=== PATIENT | female | born 1950 | race Caucasian/White ===

== ENCOUNTER 2023-06-21 22:59 | Inpatient (IN) | payer OTHER, MEDICARE, SELFPAY ==
[2023-06-21 19:53] VITALS: BP 92/55
[2023-06-21 20:14] VITALS: BMI 26.8
[2023-06-21 20:15] VITALS: BP 96/62
[2023-06-21 20:29] LABS: Hematocrit 37.4 % (37.0-47.0); Hemoglobin 13.1 g/dL (12.0-16.0); Mean Corpuscular Volume 88.6 fL (81.0-99.0); Platelet Count 261 10^3/uL (130-400); Red Blood Cell Count 4.22 10^6/uL (4.20-5.40); Red Cell Dist. Width 14.1 % (11.5-14.5); White Blood Cell Count 14.3 10^3/uL (4.8-10.8)
[2023-06-21 20:41] LABS: Lactic Acid 1.2 mmol/L (0.7-2.0)
[2023-06-21 20:47] LABS: COVID-19 Antigen Negative (Negative)
--- NOTE | 2023-06-21 20:48 | ED.GENMED ---
History of Present Illness
General
Chief Complaint: Breathing Problem
Source: patient
Exam Limitations: none
Time Seen by Provider: 06/21/23 20:34
Nursing documentation reviewed up to this point in time: agreed with
Travel History
Have you had any contact with someone who has COVID-19?: No
Do you have any symptoms of coronavirus? Fever > 100 degrees, chills, cough, shortness of breath, sore throat, loss of taste or smell, muscle aches, or headache?: No
History of Present Illness
History of Present Illness:
This is a pleasant 73-year-old female that presents with progressively worsening dyspnea, fever, congestion, and shortness of breath. Tonight, patient felt very lightheaded her pulse ox was below 88 percent on room air. She last had Tylenol at
5:15 PM. She states that she feels warm. 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 She states that she was out and Thursday due to diarrhea and fever. She did take a home COVID test and it was negative.
Patient has a past medical history is for right partial lobectomy secondary to cancer. She states that that was the late 80s and has not had breathing issues since then. She does have a history of pneumonia. She was never a smoker. And she is
not on home oxygen.
Past History
Past History
ED Past Medical History: HTN, Hypothyroidism and Other (arthritis - L knee, multiple aspirations, last one one week ago.)
Social History
Tobacco: Non-smoker
Personal:
Living: with family
Employment: Employed
Review of Systems
Review of Systems
Allergies reviewed?: Yes
Other source history: family (Son is present at the bedside)
All Other Systems: ROS reviewed and negative except as documented in HPI and ROS
Constitutional: Reports fever, fatigue, sleep disturbance and chills
EENT: Reports no symptoms
Respiratory: Reports trouble breathing; Denies hemoptysis
Cardiac: Denies chest pain
ABD/GI: Reports diarrhea
: Reports no symptoms
Musculoskeletal: Reports no symptoms
Skin: Reports no symptoms
Neurological: Reports weakness
Endocrine: Reports no symptoms
Hematologic/Lymphatic: Reports no symptoms
Psychiatric: Reports anxiety
Phy Exam
General Physical Exam
General Presentation: mild distress
General age: appears older than age
General Skin: warm and dry
General Habitus: debilitated (Evidence of rheumatoid arthritis), elderly and failure to thrive
General Mental: alert and other (Hard of hearing)
General Hydration: appears well hydrated
ENT Exam
ENT Exam: EOMI, pharynx normal, neck supple and normocephalic
Eye Exam
Eye Exam: PERRL, cornea clear and conjunctiva normal
Cardiovascular Exam
Cardiovascular Exam: regular rate/rhythm and no edema
Pulmonary Exam
Pulmonary Exam: lungs clear, no respiratory distress, no rales, no crackles, no rhonchi, no stridor, no wheezing and no cough
Gastrointestinal Exam
Gastrointestinal Exam: normal bowel sounds, non tender, soft, no organomegaly, no pulsatile mass and non distended
Neurological Exam
Neurological Exam: alert, oriented x3, no motor deficits and speech normal
Musculoskeletal Exam
Musculoskeletal Exam: full ROM and no edema
Skin Exam
Skin Exam: normal color, warm/dry, no rash and no petechia
Psychiatric Exam
Psychiatric Exam: normal mood/affect
Scores
Heart Failure Risk
Heart Failure Risk Score: Not Applicable
Course
Orders/Labs/Results
Orders:
Orders
06/21/23 20:16
Cardiac Monitoring- Treatment ONCE
IV Insert/Care/Rem.- Treatment PRN
CR Chest - 2 Views Urgent
Comment:
Reason For Exam: suspected infection
O2 Therapy [RESP] Urgent
Titrate/Wean O2 to maintain O2 sat greater than (%): 93
Special Instructions: TO MAINTAIN CONTINUOUS O2 SATS > OR = 93%
Pulse Ox/cont/shift [RESP] Urgent
Quantity: 1
Special Instructions: CONTINUOUS
06/21/23 20:18
Complete Blood Count/With Diff Urgent
Comprehensive Metabolic Panel Urgent
Lactic Acid Q4H
Comment: ON ICE, CANCEL 2ND ORDER IF FIRST LACTIC ACID LEVEL <2
Manual Differential Urgent
Blood Culture Q30M
[place] Source: Blood/Venous
Specimen Description:
Comment: FROM 2 SEPARATE SITES
Blood Culture Q30M
[place] Source: Blood/Venous
Specimen Description:
Comment: FROM 2 SEPARATE SITES
06/21/23 20:19
COVID-19 Antigen Urgent
Source: Nasal Swab
Influenza A+B Rapid Molecular Urgent
[place] Source: Nasal Swab
Specimen Description:
06/21/23 20:47
Pulse Ox/cont/shift [RESP] Stat
Quantity: 1
06/21/23 20:52
0.9% Sodium Chloride 1000 ml [Nss] 1,000 ml IV BOLUS
06/21/23 21:48
Aztreonam [Azactam] 2,000 mg IV NOW STA
06/21/23 21:52
Electrocardiogram (*1) Urgent
Reason for Study: Palpitations
EKG- Treatment ONCE
06/21/23 21:57
Sterile Water [Sterile Water For Injection] 10 ml .ROUTE .STK-MED ONE
06/21/23 22:14
Vancomycin [Vancocin] 2,000 mg 0.9% Sodium Chloride 500 ml [Nss] 500 ml IV NOW
06/21/23 22:40
Admit/Transfer Patient As Directed
Co-Sign Provider:
Level of Care: Inpatient admission
Assign to:: Medical/Surgical
Physician / Group: Maile/Hospitalist
Diagnosis: B/L Pneumonia, hypoxia
Reason for Hospitalization: B/L Pneumonia, hypoxia
Expected length of stay greater than two midnights?: Yes
ELOS- Estimated Length of Stay in days: 3
I certify the patient meets the requirements for IP care: Yes
06/21/23 22:41
Code Status As Directed
Resuscitation Status: Full Code
06/22/23 00:30
Lactic Acid Q4H
Comment: ON ICE, CANCEL 2ND ORDER IF FIRST LACTIC ACID LEVEL <2
Abnormal Lab Results
06/21/23
20:18
WBC 14.3 H 10^3/uL
(4.8-10.8)
Abs Neuts (Manual) 12.5 H 10^3/uL
(1.4-6.5)
Band Neutrophils 16 H %
(0-3)
Lymphocytes (Manual) 2 L %
(20-51)
Sodium 131 L mmol/L
(135-145)
Alkaline Phosphatase 157 H U/L
(38-126)
Total Protein 5.5 L g/dl
(6.3-8.2)
Albumin 3.1 L g/dl
(3.5-5.0)
06/21/23 20:18
06/21/23 20:18
Vital Signs
Initial and Last Documented VS:
Initial Vital Signs
Temp Pulse Resp BP Pulse Ox
98.8 F 80 24 92/55 87
06/21/23 19:53 06/21/23 19:53 06/21/23 19:53 06/21/23 19:53 06/21/23 19:53
Last Documented Vital Signs
Temp Pulse Resp BP Pulse Ox
98.8 F 67 26 115/56 92
06/21/23 19:53 06/21/23 23:15 06/21/23 23:15 06/21/23 23:00 06/21/23 23:15
*Radiology
Radiology exam reviewed: radiology read reviewed
*Pulse Oximetry
Patient hypoxic: no
*Critical Care Note
Total Time (30-74mins, 75-104mins- exclusive of procedures): Not Applicable
Data Reviewed
Review of Other/Old Records Reveals: Labs, Radiology Studies, Progress Notes and Discharge Summary
Source: patient and family
Patient Management
Social determinants of health affecting care: Strong social support
Discussion with other providers: Hospitalist and Radiologist
Update Note
Update Note:
Diagnostic Imaging Report
SignedOrder #:[id number]
Exams:� CR Chest - 2 Views
CPT: 86699
PROCEDURE: CR Chest - 2 Views
CLINICAL INDICATION: suspected infection
TECHNIQUE: 2 views of chest performed.
COMPARISON: 10/08/2022
FINDINGS:
Lungs: Scattered moderate interstitial and airspace opacities throughout the right lung and left midlung. Small right pleural effusion. No visualized pneumothorax.
Heart: Cardiac and mediastinal contours are unremarkable. No overt pulmonary vascular congestion.
Osseous structures: No acute abnormalities.
IMPRESSION:
Findings suggesting bilateral multifocal pneumonia, right worse than left. Small right pleural effusion.
ED Attending Note
-
Portions of this chart may have been created with voice recognition software.� Occasional wrong word or��sound alike� substitutions may have occurred due to the inherent limitations of voice recognition software.
Discharge Plan
Departure
Patient Disposition: Admit
Date of Disposition: 06/21/23
Time of Disposition: 21:50
Admit to: IMU
Presentation/result/management discussed w/ accepting MD/DO: Hospitalist
Condition: Fair
Covid-19: Negative COVID-19
Discharge Problem:
Bilateral pneumonia, History of breast cancer, History of pneumonectomy
Interventions
Interventions:
*Risk Screen - Suicide Last Done: 06/21/23 19:53
*General Assessment Last Done: 06/21/23 20:14
*Neglect/Abuse Screening Last Done: 06/21/23 19:53
ED- Fall Risk Assessment Last Done: 06/21/23 22:00
*ED COVID-19 Vaccine History Last Done: 06/21/23 20:14
ED- Cardiac Assessment Last Done: 06/21/23 22:00
ED- Neurological Assessment Last Done: 06/21/23 22:00
ED- Pulmonary Assessment Last Done: 06/21/23 22:00
ED-Skin Assessment Last Done: 06/21/23 22:00
[2023-06-21 20:49] LABS: ALT (SGPT) 14 U/L (0-35); AST (SGOT) 20 U/L (14-36); Albumin 3.1 g/dl (3.5-5.0); Alkaline Phosphatase 157 U/L (38-126); Blood Urea Nitrogen 12 mg/dl (7-17); Calcium 8.5 mg/dl (8.4-10.2); Carbon Dioxide 23 mmol/L (22-30); Chloride 100 mmol/L (98-107); Estimated Creatinine Clearance 74 ml/min; Glucose 88 mg/dl (70-99); Potassium 3.6 mmol/L (3.5-5.1); Sodium 131 mmol/L (135-145); Total Protein 5.5 g/dl (6.3-8.2); eGFR > 60.00
[2023-06-21 21:00] VITALS: BP 106/59
[2023-06-21 21:11] LABS: Absolute Neutrophils -Man Diff 12.5 10^3/uL (1.4-6.5); Band Neutrophils 16 % (0-3); Lymphocytes 2 % (20-51); Monocytes 8 % (2-9); Myelocytes 2 % (-); Platelets Checked Yes; Segmented Neutrophils 72 % (42-75)
[2023-06-21 21:12] LABS: Normal RBC Morphology Yes; Total Cells Counted 100
[2023-06-21] MEDS: NSS 1000 IV (21:14)
--- NOTE | 2023-06-21 21:54 | HPS.HSE ---
Family Physician
-
Family Physician: Rosi Hall MD
Chief Complaint
-
progressively worsening dyspnea, fever, congestion, shortness of breath, and diarrhea
History of Present Illness
The patient is a 72-year-old female with past medical history of low factor XIII level, postop hemorrhage after right hip replacement, right upper extremity DVT associated with PICC line on Eliquis until when it was discontinued (resolved
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
congestion that has progressively worsened over the past week. Pulse oximetry was 88% on room air. She is not on home oxygen. She took Tylenol at home at 5pm and Robitussin with some relief. She has been off Eliquis since per her follow up
apt with doc after full txt for provoked DVT of UE. She is not on any immunosuppressive therapy since September 2022.
No CP, no hemoptysis, no n/v, no abdominal pain, no dysuria. She had large watery diarrhea non-bloody and Thursday and has not been eating much since that time.
Medical History
Past Medical History
Past Medical History: Reports Cancer (Breast), HTN, Hypothyroidism and Other
Additional Past Medical History:
Essential HTN,
Hypothyroidism
arthritis - L knee, multiple aspirations
Acquired factor VIII def.
Hemorrhages
Acute blood loss anemia
Osteoarthritis
Cholelithiasis
Adrenal insufficiency
Right hip fracture
Rheumatoid arthritis off all medications for RA since September 2022 due to bleeding history (medication she was on thought to provoke bleeding)
Breast cancer with met to lung
Past Surgical History: Reports Orthopedic (b/l TKA, hip replacement) and Other
Additional Past Surgical History:
Right partial pneumonectomy due to breast cancer (late ) , mastectomy
Social History
Tobacco: Non-smoker
Alcohol: None
Drug: None
Personal:
Living: With Family
Family History
Family History: Not pertinent
Allergies / Home Medications
Allergies reflects when Allergies were last updated in [facility].
Home Medications with original date entered in [facility]
Allergy/Medication List:
Allergies
Allergy/AdvReac Type Severity Reaction Status Date / Time
Cephalosporins Allergy Hives/Patient Verified 06/21/23 19:56
is
uncertain
about this
med.
Iodinated Contrast Media Allergy Hives Verified 06/21/23 19:56
[Iodinated Contrast- Oral
and IV Dye]
iodine [Iodine] Allergy Hives/topical Verified 06/21/23 19:56
is okay
Penicillins Allergy Hives/occured Verified 06/21/23 19:56
in the 90's
Home Medications
levothyroxine 75 mcg tablet 75 mcg PO DAILY AT 0700 Thyroid 10/26/20
alendronate 70 mg tablet (Fosamax) 70 mg PO SA osteoporosis 09/18/22
cyanocobalamin (vitamin B-12) 100 mcg tablet (Vitamin B-12) 100 mcg PO DAILY Supplement 12/05/22
Review of Systems
-
A 12 point ROS was completed and negative except as noted: Yes
Physical Exam
Vital Signs
Vital Signs
Temp Pulse Resp BP Pulse Ox
98.8 F 68 23 106/59 87
06/21/23 19:53 06/21/23 21:00 06/21/23 21:00 06/21/23 21:00 06/21/23 19:53
Physical Exam
General: Well Developed, Well Nourished, Comfortable and Conversant
HEENT: NormoCephalic, Anicteric and Moist mucous membranes
Respiratory: Rhonchi (right middle and lower, left lower)
Cardiac: S1/S2 and Carotid Pulses
GI: Soft, Non Tender and Non Distended
Musculoskeletal: No Clubbing, No Cyanosis and No Edema
Skin: Warm and Dry
Neuro: AO x 3, No Motor Deficits and Nonfocal/grossly intact
Psych: Calm
Laboratory Results
-
06/21/23 20:18
06/21/23 20:18
Laboratory Results
Lactic Acid 1.2 mmol/L (0.7-2.0) 06/21/23 20:18
Total Bilirubin 1.0 mg/dl (0.2-1.3) 06/21/23 20:18
AST 20 U/L (14-36) 06/21/23 20:18
ALT 14 U/L (0-35) 06/21/23 20:18
Alkaline Phosphatase 157 U/L (38-126) H 06/21/23 20:18
Data Reviewed
-
Diagnostic Radiology: Report Reviewed by me (bilateral multifocal pneumonia, right worse than left. Small right pleural effusion.)
Impression/Plan
-
IMPRESSION:The patient is a 72-year-old female with past medical history of low factor XIII level, postop hemorrhage after right hip replacement, right upper extremity DVT associated with PICC line on Eliquis until when it was discontinued
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
congestion that has progressively worsened over the past week. Pulse oximetry was 88% on room air. She is not on home oxygen.
#Bacterial pneumonia, bilateral multifocal pneumonia, associated with persistent hypoxia, CXR with multifocal pneumonia right worse than left. Small right pleural effusion. Leukocytosis 14.3, hypoxia, tachypnea
-Continue IV Vancomycin and IV Aztreonam initiated in ED , drug allergy to Cephalosporins and PCN
-Sputum Cx, LUE pending
-IVF
-O2 per NC at 3L
#Hypoxic respiratory failure, not on home oxygen in the setting of history of partial right-sided pneumonectomy
-wean O2 per protocol, 3L NC currently
#Diarrhea, watery non-bloody
-stool studies
Chronic medical issues:
#Essential HTN, stable, not on medication
#Hypothyroidism
-TSH
-Synthroid
#Rheumatoid arthritis - L knee, multiple aspirations, not on any medications at this time since September
#Acquired factor VIII def.
#hemorrhages, no active bleeding
#Acute blood loss anemia
#osteoarthritis
#adrenal insufficiency, history of
DVT proph- PCDs
Full Code
[2023-06-21 22:00] VITALS: BP 127/65
[2023-06-21] MEDS: AZACTAM 2000 MG IV (22:22)
[2023-06-21] MEDS: VANCOCIN 540 MG IV (22:35)
[2023-06-21 23:00] VITALS: BP 115/56
[2023-06-22 00:15] VITALS: BMI 26.5
[2023-06-22 00:16] VITALS: BP 130/67
[2023-06-22] MEDS: NSS 1000 IV ×3 (00:17→15:34)
--- NOTE | 2023-06-22 00:29 | PTCARENOTE ---
Recieved pt from ED @ 0015. Pt AAOX3 VSS. Pt ambulated from stretcher to bed, stopping in bathroom where she got very SOB. Pt ambulated back to bed,pox 93% on 3L. Pt with frequent nonproductive cough, [employer] SPE[employer] notified fo PRN Robitussin orders. Oriented
to room, call tinajero and plan of care.
[2023-06-22] MEDS: ROBITUSSIN DM 10 ML PO ×3 (00:37→22:45)
[2023-06-22] MEDS: AZACTAM 2000 MG IV ×2 (05:50→14:12)
[2023-06-22] MEDS: STERILE WATER FOR INJECTION 10 ML IV ×3 (05:51→15:34)
[2023-06-22] MEDS: SYNTHROID 75 MCG PO (05:55)
[2023-06-22 07:30] VITALS: BP 121/62
[2023-06-22 08:08] LABS: % Basophils 0.1 % (0-2); % Eosinophils 1.6 % (0-6); % Immature Granulocytes 1.4 % (0-0.5); % Lymphocytes 4.1 % (20.5-51.1); % Monocytes 2.6 % (1.7-9.3); % Neutrophils 90.2 % (42.2-75.2); Absolute Eosinophils 0.2 10^3/uL (0-0.7); Absolute Immature Granulocytes 0.2 10^3/uL (0-0.05); Absolute Lymphocytes 0.6 10^3/uL (1.2-3.4); Absolute Monocytes 0.3 10^3/uL (0.1-0.6); Hematocrit 32.2 % (37.0-47.0); Hemoglobin 11.2 g/dL (12.0-16.0); Mean Corp Hgb Conc. 34.8 g/dL (33.0-37.0); Mean Corpuscular Hgb 31.5 pg (27.0-31.0); Mean Corpuscular Volume 90.4 fL (81.0-99.0); Mean Platelet Volume 9.3 fL (7.4-10.4); Nucleated Red Blood Cells % 0 %; Platelet Count 249 10^3/uL (130-400); Red Blood Cell Count 3.56 10^6/uL (4.20-5.40); Red Cell Dist. Width 14.4 % (11.5-14.5); White Blood Cell Count 13.3 10^3/uL (4.8-10.8)
[2023-06-22] MEDS: VITAMIN B-12 100 MCG PO (08:31)
[2023-06-22 08:46] LABS: Blood Urea Nitrogen 14 mg/dl (7-17); Carbon Dioxide 21 mmol/L (22-30); Chloride 102 mmol/L (98-107); Estimated Creatinine Clearance 74 ml/min; Glucose 67 mg/dl (70-99); Potassium 3.3 mmol/L (3.5-5.1); Sodium 135 mmol/L (135-145); eGFR > 60.00
--- NOTE | 2023-06-22 11:53 | CM ---
Patient seen bedside.
IA completed.
patient lives with son in a 2 story home, patient lives on 1st floor, son on 2nd.
Patient independent prior to admission without assistive devices.
Patient is no on home oxygen.
No VN in the past.
PCP: Dr Hall
Pharmacy: [facility]
Plan: home no needs.
--- NOTE | 2023-06-22 12:16 | PHA.VAN.IN ---
Assessment
- Assessment
Renal Function: Appears similar to baseline
Maximum Temperature: 98.8
Minimum Temperature: 97.8
Concomitant Antimicrobials: aztreonam
AUC Dosing Plan
- Dosing Variables
Dosing Weight (kg): 72
Dosing CrCl (ml/min): 74
Vd coefficient (L/kg): 0.7
- Empiric Dosing
Initial / Loading Dose: 2000mg 06/21 2234
Maintenance Regimen: vanc 750mg q12h
Estimated AUC (mcg*h/mL): 467
Estimated Peak (mcg*h/mL): 27.3
Estimated Trough (mcg/ml): 13.2
Estimated Half Life (H): 10.5
- Monitoring
No levels ordered at this time: consider in the next few days
MRSA Screen: Ordered per protocol (PCR)
Pharmacokinetics Vancomycin I
- -
Patient Age: 73
Patient Sex: Female
Vancomycin Day #: 1
Indication: Pulmonary/Respiratory
Requesting Provider: Dr Gr
Pertinent Antimicrobial Allergies:
Cephalosporins Allergy (Verified 06/22/23 12:15)
Hives/Patient is uncertain about this med.
tolerated cefazolin in past (pulled in from 2007 [employer] migration)
Penicillins Allergy (Verified 06/21/23 19:56)
Hives/occured in the 90's
Height / Weight:
Height 5 ft 5 in
Actual Weight 72.178 kg
- Vital Signs / Lab Results
Temp Pulse Resp BP Pulse Ox
97.9 F 74 22 121/62 94
06/22/23 07:30 06/22/23 07:30 06/22/23 07:30 06/22/23 07:30 06/22/23 07:30
Lab Results - Hematology
06/21/23 06/22/23
20:18 07:19
WBC 14.3 H 13.3 H
Band Neutrophils 16 H
Lab Results - Chemistry
06/21/23 06/22/23
20:18 07:19
BUN 12 14
Creatinine 0.6 0.5 L
Estimated Creat Clear 74 74
Albumin 3.1 L
06/21/23 06/22/23
20:18 00:30
Lactic Acid 1.2 Cancelled
Microbiology Results
06/22/23 08:47 Gram Stain - Preliminary
Sputum
06/21/23 20:19 Influenza Types A & B ([place]) - Final
Nasal Swab Negative for Influenza A & B, NAAT
Negative results must be combined with clinical observations
and patient history.
Nucleic Acid Amplification test (NAAT)performed on the
[employer] platform.
--- NOTE | 2023-06-22 14:07 | W.PN.HOSP.TC ---
Today's Communication/Plan
-
Switch to oral ceftriaxone and doxycycline.
Wean oxygen as able.
Continue to follow in the hospital.
Assessment / Plan
Assessment / Plan
IMPRESSION:The patient is a 72-year-old female with past medical history of low factor XIII level, postop hemorrhage after right hip replacement, right upper extremity DVT associated with PICC line on Eliquis until when it was discontinued
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
congestion that has progressively worsened over the past week. Pulse oximetry was 88% on room air. She is not on home oxygen.
#Bacterial pneumonia, bilateral multifocal pneumonia, associated with persistent hypoxia, CXR with multifocal pneumonia right worse than left. Small right pleural effusion. Leukocytosis 14.3, hypoxia, tachypnea
-Afebrile today and improving white count
-Blood cultures pending; COVID-19 and influenza negative.
-Will treat this as community-acquired pneumonia. Immunocompetent host. Will treat with IV ceftriaxone and doxycycline
-Patient allergies lists cephalosporins along with penicillin. Patient is not certain about this medicine. Cephalosporin allergy issues was looked into further- [employer] linked cephalosporin allergy back from 2007 migration. She has
tolerated cefazolin in the past but did well changed to ceftriaxone and follow closely for any reactions.
-Sputum Cx,
-O2 per NC at 3L
#Hypoxic respiratory failure, not on home oxygen in the setting of history of partial right-sided pneumonectomy
-wean O2 per protocol, 3L NC currently
#Diarrhea, watery non-bloody
-stool studies
Chronic medical issues:
#Essential HTN, stable, not on medication
#Hypothyroidism
-TSH
-Synthroid
#Rheumatoid arthritis - L knee, multiple aspirations, not on any medications at this time since September
#Acquired factor VIII def.
#hemorrhages, no active bleeding
#Acute blood loss anemia
#osteoarthritis
#adrenal insufficiency, history of
DVT proph- PCDs
Full Code
Anticipated Discharge: > 48 hours
Subjective/Interval History
-
Date of Service: June 22, 2023
No fevers today. No chills. Persistent cough.
Persistent shortness of breath with minimal exertion. No chest pains.
No nausea vomiting.
Objective Data
-
Labs:
Laboratory Results
06/22/23
07:19
WBC 13.3 H
Hgb 11.2 L
Hct 32.2 L
Plt Count 249
Sodium 135
Potassium 3.3 L
Chloride 102
Carbon Dioxide 21 L
BUN 14
Creatinine 0.5 L
Glucose 67 L
Calcium 8.0 L
Vital Signs:
Vital Signs
Temp Pulse Resp BP Pulse Ox
97.9 F 74 22 121/62 94
06/22/23 07:30 06/22/23 07:30 06/22/23 07:30 06/22/23 07:30 06/22/23 07:30
I&O
06/21/23 06/22/23 06/23/23
06:59 06:59 06:59
Intake Total 700 / 700
Balance 700 / 700
Review of Systems
-
EENT: Denies Sore Throat
Abdomen/GI: Denies Abdominal Pain
Neuro: Denies Dizzy
Physical Exam
-
General: No Apparent Distress
HEENT: Moist Mucous Membranes
Respiratory: Crackles (Rt lower zone and left basilar area) and Non Labored Respirations; Negative Wheezes or Accessory Resp Muscle Use
Cardiac: Regular Rhythm and S1/S2; Negative Tachycardic
GI: Soft
Musculoskeletal: Negative No Edema
Neuro: AO x 3
Psych: Calm; Negative Confused
Data Reviewed
-
Labs: Labs Reviewed by me
[2023-06-22 15:30] VITALS: BP 114/67
[2023-06-22] MEDS: ROCEPHIN 1000 MG IV (15:34)
--- NOTE | 2023-06-22 17:26 | CM ---
Patient seen bedside.
IA completed.
patient lives in 2 story home on the 1st level, her son lives on the second.
Patient independent prior to admission.
Patient drives.
[facility] VN in the past.
Patient denies VN needs at this time.
PCP: Dr Hall
Pharmacy: [facility]
Plan: home no needs anticipated.
[2023-06-22] MEDS: VIBRAMYCIN 100 MG PO (19:58)
--- NOTE | 2023-06-22 21:41 | VATNOTE ---
called to assess right arm IV infiltrate; PCN removed IV; moderate infiltrate from NSS above IV site. (mid forearm to slightly above AC area). Elevated on pillow. pt. denies pain. SPoke @ length with pt. as she is concerned about using right arm for
any IV's going forward as she had a blood clot in right arm Dec 2022. Pt. recently to dr. caldera and recent US confirmed no presence of clot. However told pt. she has a lot of scar tissue in right upper arm and that NO IV's are to be
placed in right arm above AC. pt. had left mastectomy with nodes removed so unable to use left arm for IV placement. Pt. refusing IV restart at this time and wants all meds to be ordered oral. Jihan HOWELL informed.
[2023-06-22] MEDS: PEPCID 20 MG PO (21:45)
[2023-06-22] MEDS: BENADRYL 25 MG PO (21:45)
[2023-06-22 23:10] VITALS: BP 110/60
--- NOTE | 2023-06-22 23:33 | W.PN.UPDATE ---
Update Note
Progress Note Update
RN reporting pt with erythema throughout body. Presumably from new antibiotics she has received ( rocephin at 1600/doxy at 1958).
Pt with PCN allergy and cephalosporin allergy hx (hives)
Examined pt at bedside. Pt without any resp compromise, no puritis. Extensive erythema to arms, chest and legs (like a sunburn). No discomfort.
RUe swollen due to iv infiltrate. PT prefers not to iv restarted.
Explained since she had her doses of abx given already today that i will let attending know about reaction. Consider ID consult.
Gave benadryl and pepcid.
--- NOTE | 2023-06-23 03:25 | PTCARENOTE ---
Patient rang call tinajero, reporting redness throughout body and swelling to right arm above IV site. IVT at bedside, IV removed, arm elevated. Patient refusing new IV at this time. [employer]CH[employer]IC Dayami Castro notified, PO pepcid and benedryl ordered and
administered. Patient denies shortness of breath, denies puritis. OPTICAL MECHANIC d/c IVF, IV and PO abx put on hold.
[2023-06-23] MEDS: ROBITUSSIN DM 10 ML PO ×3 (05:35→20:43)
[2023-06-23] MEDS: SYNTHROID 75 MCG PO (05:35)
[2023-06-23 07:30] VITALS: BP 114/59
[2023-06-23] MEDS: VITAMIN B-12 100 MCG PO (08:02)
[2023-06-23 09:29] LABS: Hematocrit 35.1 % (37.0-47.0); Hemoglobin 11.7 g/dL (12.0-16.0); Mean Corp Hgb Conc. 33.3 g/dL (33.0-37.0); Mean Corpuscular Hgb 30.8 pg (27.0-31.0); Mean Corpuscular Volume 92.4 fL (81.0-99.0); Mean Platelet Volume 9.6 fL (7.4-10.4); Platelet Count 263 10^3/uL (130-400); Red Cell Dist. Width 14.5 % (11.5-14.5); White Blood Cell Count 18.1 10^3/uL (4.8-10.8)
[2023-06-23 10:55] LABS: Blood Urea Nitrogen 15 mg/dl (7-17); Calcium 7.8 mg/dl (8.4-10.2); Carbon Dioxide 26 mmol/L (22-30); Chloride 104 mmol/L (98-107); Estimated Creatinine Clearance 74 ml/min; Glucose 122 mg/dl (70-99); Potassium 3.3 mmol/L (3.5-5.1); Sodium 130 mmol/L (135-145); eGFR > 60.00
--- NOTE | 2023-06-23 11:38 | W.PN.HOSP.TC ---
Today's Communication/Plan
-
DC ceftriaxone. Consult ID for antibiotic choices.
Assessment / Plan
Assessment / Plan
IMPRESSION:The patient is a 72-year-old female with past medical history of low factor XIII level, postop hemorrhage after right hip replacement, right upper extremity DVT associated with PICC line on Eliquis until when it was discontinued
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
congestion that has progressively worsened over the past week. Pulse oximetry was 88% on room air. She is not on home oxygen.
#Bacterial pneumonia, bilateral multifocal pneumonia, associated with persistent hypoxia, CXR with multifocal pneumonia right worse than left. Small right pleural effusion. Leukocytosis 14.3, hypoxia, tachypnea
-Afebrile today and initial improvement in white count noted with worsening again which I suspect may be reactive to her drug reaction.
-Blood cultures negative; COVID-19 and influenza negative.
-Will treat this as community-acquired pneumonia. Immunocompetent host. SwitchED to IV ceftriaxone and doxycycline 2/ but then developed generalized redness suspect secondary to ceftriaxone. Hold further cephalosporins. Consult ID for
antibiotic choices.
(Patient allergies lists cephalosporins along with penicillin. Patient is not certain about this medicine. Cephalosporin allergy issues was looked into further- [email or web address] linked cephalosporin allergy back from 2007 migration. She has
tolerated cefazolin in the past )
-Sputum Cx usual joaquin
-O2 per NC-currently improved from 3 L to 1 L
#Hypoxic respiratory failure, not on home oxygen in the setting of history of partial right-sided pneumonectomy
-wean O2 per protocol, 1 L NC currently
#Diarrhea, watery non-bloody
-None today
Chronic medical issues:
#Essential HTN, stable, not on medication
#Hypothyroidism
-TSH
-Synthroid
#Rheumatoid arthritis - L knee, multiple aspirations, not on any medications at this time since September
#Acquired factor VIII def.
#hemorrhages, no active bleeding
#Acute blood loss anemia
#osteoarthritis
#adrenal insufficiency, history of
DVT proph- PCDs
Full Code
Anticipated Discharge: 24 - 48 hours
Subjective/Interval History
-
Date of Service: June 23, 2023
Patient broke into generalized redness yesterday after receiving antibiotics which included IV ceftriaxone and doxycycline
She had no itchiness. No tongue swelling. No shortness of breath.
She got Benadryl. Improving redness. Most of her redness was all over her lower extremities abdomen and the left upper extremity. Strangely did not involve the right upper extremity apparently. She did have IV 2/5 there which was infiltrated
which gave her swelling of the right arm which is improved.
Objective Data
-
Labs:
Laboratory Results
06/23/23 06/23/23
07:56 10:30
WBC 18.1 H
Hgb 11.7 L
Hct 35.1 L
Plt Count 263
Sodium Cancelled 130 L
Potassium Cancelled 3.3 L
Chloride Cancelled 104
Carbon Dioxide Cancelled 26
BUN Cancelled 15
Creatinine Cancelled 0.6
Glucose Cancelled 122 H
Calcium Cancelled 7.8 L
Vital Signs:
Vital Signs
Temp Pulse Resp BP Pulse Ox
98.0 F 76 20 114/59 97
06/23/23 07:30 06/23/23 07:30 06/23/23 07:30 06/23/23 07:30 06/23/23 07:30
I&O
06/22/23 06/23/23 06/24/23
06:59 06:59 06:59
Intake Total 700 / 700 840 / 840
Balance 700 / 700 840 / 840
Review of Systems
-
Constitutional: Denies Fever
Respiratory: Reports Cough and Trouble Breathing (Exertion)
Cardiac: Denies Chest Pain
Abdomen/GI: Denies Abdominal Pain, Nausea or Vomiting
Neuro: Denies Dizzy
Physical Exam
-
General: No Apparent Distress
HEENT: Moist Mucous Membranes
Respiratory: Crackles (Right lower zone) and Non Labored Respirations; Negative Wheezes or Accessory Resp Muscle Use
Cardiac: Regular Rhythm and S1/S2
GI: Soft
Skin: Other (Redness still evident in the lower abdomen and in the legs mostly in the upper inner.)
Neuro: AO x 3
Psych: Negative Calm or Confused
Data Reviewed
-
Labs: Labs Reviewed by me
[2023-06-23] MEDS: ROBITUSSIN DM PO (12:04)
[2023-06-23] MEDS: TESSALON PERLES 100 MG PO (12:09)
--- NOTE | 2023-06-23 13:50 | CON.ID ---
Consultation
-
Date/Time Consultation Requested: 06/23/2023 1110
Date/Time Consultation Performed: 06/23/2023 1320
Requesting Provider: Dr. Valentino
Performing Provider: Dr. Farfan
Reason for Consultation: Pneumonia; recent Rxn to ceftriaxone
Chief Complaint / Past History
History of Present Illness
Nathaly Badillo is a 73-year-old female being evaluated at the request of Dr. Valentino in regards to pneumonia. History is obtained from chart review, along with patient interview. Patient has a history of low factor VIII level and reports that she had
significant issues following a hip replacement in the latter half of 2022, requiring evaluation at the [facility]. Additionally, she had previously developed a subclavian clot and was on a period of Eliquis.
She notes over the past week or so she has developed increasing cough, initially starting with some rhinorrhea. Cough persisted and now she has developed shortness of breath. She admits to sputum production, but denies any hemoptysis. She was
started on Rocephin and received a dose last night, but approximately 2 to 3 hours following its administration she developed generalized body redness. She denies any pruritus or hives. She denies any throat swelling or shortness of breath
attributed to that. Infectious Diseases is now asked to comment upon further antimicrobial therapy. At this time she continues with a cough she denies any fevers. She denies any pain. She denies any recent travel. She denies any sick contacts.
Past History
Additional Past Medical History:
HTN
Hx breast cancer
Hypothyroid
Osteoarthritis
Acquired factor VIII deficiency
Cholelithiasis
Adrenal insufficiency
Rheumatoid arthritis
Additional Past Surgical History:
Bilateral total knee replacement
Hip replacement
Right partial pneumonectomy
Mastectomy
Allergy History:
Cephalosporins Allergy (Intermediate, Verified 06/23/23 11:38)
Generalized redness
Iodinated Contrast Media [Iodinated Contrast- Oral and IV Dye] Allergy (Verified 06/21/23 19:56)
Hives
iodine [Iodine] Allergy (Verified 06/21/23 19:56)
Hives/topical is okay
Penicillins Allergy (Verified 06/21/23 19:56)
Hives/occured in the 90's
Medications Reviewed: Yes
Current Antibiotics:
None
Social History
Tobacco: Non-Smoker
Alcohol: None
Drug: None
Living: With Family
Employment: Employed
Family History
Family History: Not Pertinent
Review of Systems
Vital Signs
Temp Pulse Resp BP Pulse Ox
98.0 F 76 20 114/59 97
06/23/23 07:30 06/23/23 07:30 06/23/23 07:30 06/23/23 07:30 06/23/23 07:30
Physical Exam
Physical Exam
Constitutional: No Acute Distress, Comfortable and Non-toxic
Eyes: No Conjunctival Hemorrhage and Sclera Anicteric
Oral: No Thrush and No Ulcers
Cardiovascular: Regular Rate and S1/S2; Negative S3/S4
Pulmonary: Non Labored; Negative Wheezes, Rales or Rhonchi
Gastrointestinal: Soft, Non Tender and Non Distended
Musculoskeletal: Negative Joint Swelling or Joint Effusion
Skin: Rash (Generalized erythema over proximal legs arms and abdomen.)
Neurological: Awake and Alert
Psychological: Calm
.
Lab / Diagnostic Study Results
06/23/23 07:56
06/23/23 10:30
Abs Immat Gran (auto) 0.2 10^3/uL (0-0.05) H 06/22/23 07:19
Absolute Neuts (auto) 12.0 10^3/uL (1.4-6.5) H 06/22/23 07:19
Absolute Lymphs (auto) 0.6 10^3/uL (1.2-3.4) L 06/22/23 07:19
Absolute Monos (auto) 0.3 10^3/uL (0.1-0.6) 06/22/23 07:19
Absolute Basos (auto) 0.0 10^3/uL (0-0.2) 06/22/23 07:19
Total Counted 100 06/21/23 20:18
Immature Gran % 1.4 % (0-0.5) H 06/22/23 07:19
Neutrophils % 90.2 % (42.2-75.2) H 06/22/23 07:19
Lymphocytes % 4.1 % (20.5-51.1) L 06/22/23 07:19
Monocytes % 2.6 % (1.7-9.3) 06/22/23 07:19
Eosinophils % 1.6 % (0-6) 06/22/23 07:19
Basophils % 0.1 % (0-2) 06/22/23 07:19
Abs Neuts (Manual) 12.5 10^3/uL (1.4-6.5) H 06/21/23 20:18
Segmented Neutrophils 72 % (42-75) 06/21/23 20:18
Band Neutrophils 16 % (0-3) H 06/21/23 20:18
Lymphocytes (Manual) 2 % (20-51) L 06/21/23 20:18
Lactic Acid Cancelled 06/22/23 00:30
Microbiology Results
Micro:
06/22/23 08:47 Respiratory Culture - Preliminary
Sputum Usual Respiratory Niya
Gram Stain - Preliminary
06/21/23 20:18 Blood Culture - Preliminary
Blood/Venous No Growth in 24 hours- Final report to follow
06/21/23 20:18 Blood Culture - Preliminary
Blood/Venous No Growth in 24 hours- Final report to follow
06/22/23 11:10 MRSA Screen - Pending
Nose
06/21/23 20:19 Influenza Types A & B ([place]) - Final
Nasal Swab Negative for Influenza A & B, NAAT
Negative results must be combined with clinical observations
and patient history.
Nucleic Acid Amplification test (NAAT)performed on the
[employer] platform.
Imaging:
06/21/2023 CXR (2 view): Scattered moderate interstitial and airspace opacities throughout the right lung and left midlung. Small right pleural effusion.
Assessment / Plan
Pneumonia (CAP)
Leukocytosis
Generalized rash; suspected secondary to recent ceftriaxone administration
Multiple antibiotic allergies
HTN
Hx breast cancer
Hypothyroid
Osteoarthritis
Acquired factor VIII deficiency
Cholelithiasis
Adrenal insufficiency
Rheumatoid arthritis
Recommendations:
Discontinue further doxycycline (currently on hold)
Begin Levaquin 750 mg p.o. daily x 5 days
Monitor for improvement.
Check Legionella and pneumococcal urinary antigens.
Follow-up CXR in 4 to 6 weeks.
[2023-06-23 14:08] VITALS: PULSE 77; O2SAT 92
[2023-06-23] MEDS: LEVAQUIN 750 MG PO (14:10)
[2023-06-23 15:30] VITALS: BP 136/62
[2023-06-23 22:51] VITALS: BP 132/64
[2023-06-23 23:30] VITALS: BP 132/64
[2023-06-24] MEDS: SYNTHROID 75 MCG PO (05:11)
[2023-06-24 05:22] VITALS: BMI 27.9
[2023-06-24 07:35] VITALS: BP 121/64
[2023-06-24] MEDS: VITAMIN B-12 100 MCG PO (07:55)
[2023-06-24] MEDS: LEVAQUIN 750 MG PO (07:55)
--- NOTE | 2023-06-24 10:26 | W.PN.ID1 ---
Date of Service
Date of Service: June 24, 2023
Today's Communication
Continue Levaquin.
Assessment / Plan
Pneumonia (CAP)
Leukocytosis
- rising
Generalized rash; suspected secondary to recent ceftriaxone administration
Multiple antibiotic allergies
HTN
Hx breast cancer
Hypothyroid
Osteoarthritis
Acquired factor VIII deficiency
Cholelithiasis
Adrenal insufficiency
Rheumatoid arthritis
Recommendations:
Continue Levaquin 750 mg p.o. daily x 4 additional days
Monitor for improvement.
Monitor WBC
Legionella and pneumococcal urinary antigens negative
Follow-up CXR in 4 to 6 weeks.
Chief Complaint
-: Pneumonia
Subjective / Review of Systems
Review of Systems: No Fever, No Chills, Cough, No Sputum Production and No Chest Pain
Vital Signs / Physical Exam
Vital Signs
Vital Signs
Temp Pulse Resp BP Pulse Ox
98.1 F 80 16 121/64 92
06/24/23 07:35 06/24/23 07:35 06/24/23 07:35 06/24/23 07:35 06/24/23 07:35
Physical Exam
Constitutional: No Acute Distress, Comfortable and Non-toxic
Eyes: No Conjunctival Hemorrhage and Sclera Anicteric
Cardiovascular: S1/S2; Negative S3/S4
Pulmonary: Rhonchi (Scattered), Coarse and Non Labored
Gastrointestinal: Soft, Non Tender and Non Distended
Neurological: Awake and Alert
Objective Data
Lab Data
Lab Results
06/23/23 07:56
06/23/23 10:30
Estimated Creat Clear 74 ml/min 06/23/23 10:30
Lactic Acid Cancelled 06/22/23 00:30
Total Bilirubin 1.0 mg/dl (0.2-1.3) 06/21/23 20:18
AST 20 U/L (14-36) 06/21/23 20:18
ALT 14 U/L (0-35) 06/21/23 20:18
Alkaline Phosphatase 157 U/L (38-126) H 06/21/23 20:18
Most recent labs reviewed.
Micro Results:
06/23/23 21:24 Legionella Urinary Antigen - Final
Urine Negative for Legionella pneumophila Serogroup 1 antigen.
Streptococcus pneumoniae Antigen (M - Final
Negative for Streptococcus pneumoniae antigen.
06/21/23 20:18 Blood Culture - Preliminary
Blood/Venous No Growth in 48 hours- Final report to follow
06/21/23 20:18 Blood Culture - Preliminary
Blood/Venous No Growth in 48 hours- Final report to follow
06/22/23 11:10 MRSA Screen - Final
Nose No Methicillin Resistant Staphylococcus aureus isolated.
06/22/23 08:47 Respiratory Culture - Preliminary
Sputum Usual Respiratory Niya
Gram Stain - Preliminary
06/21/23 20:19 Influenza Types A & B ([place]) - Final
Nasal Swab Negative for Influenza A & B, NAAT
Negative results must be combined with clinical observations
and patient history.
Nucleic Acid Amplification test (NAAT)performed on the
[employer] platform.
Imaging:
06/21/2023 CXR (2 view): Scattered moderate interstitial and airspace opacities throughout the right lung and left midlung. Small right pleural effusion.
Care Review
Plan reviewed with: Physician (Hospitalist)
--- NOTE | 2023-06-24 11:17 | CM ---
Patient seen bedside.
Patient denies home care needs at this time.
Plan: home no needs anticipated.
[2023-06-24] MEDS: MIRALAX 17 GRAMS PO (12:35)
--- NOTE | 2023-06-24 13:04 | W.PN.HOSP.TC ---
Today's Communication/Plan
-
CT chest
cw abx
Assessment / Plan
Assessment / Plan
IMPRESSION:The patient is a 72-year-old female with past medical history of low factor XIII level, postop hemorrhage after right hip replacement, right upper extremity DVT associated with PICC line on Eliquis until when it was discontinued
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
congestion that has progressively worsened over the past week. Pulse oximetry was 88% on room air. She is not on home oxygen.
#Bacterial pneumonia, bilateral multifocal pneumonia, associated with hypoxia, CXR with multifocal pneumonia right worse than left. Small right pleural effusion. Leukocytosis 14.3, hypoxia, tachypnea
-Afebrile and initial improvement in white count noted with worsening again which I suspect may be reactive to her drug reaction.
-Blood cultures negative; COVID-19 and influenza negative.
-Will treat this as community-acquired pneumonia. Immunocompetent host. Switched to IV ceftriaxone and doxycycline 2/ but then developed generalized redness suspect secondary to ceftriaxone. Hold further cephalosporins. appt ID input - now on
Levaquin.
(Patient allergies lists cephalosporins along with penicillin. Patient is not certain about this medicine. Cephalosporin allergy issues was looked into further- [employer] linked cephalosporin allergy back from 2007 migration. She has
tolerated cefazolin in the past )
-Sputum Cx usual joaquin
-O2 per NC-currently improved -on RA
Despite some objective improvements patient is still feeling short of breath without much improvement. Will get a CT of the chest to evaluate further. Patient is allergic to IV contrast so we will start with the preparation.
#Hypoxic respiratory failure, not on home oxygen in the setting of history of partial right-sided pneumonectomy
-wean O2 per protocol, on RA
#Diarrhea, watery non-bloody
-Self limiting
Chronic medical issues:
#Essential HTN, stable, not on medication
#Hypothyroidism
-TSH
-Synthroid
#Rheumatoid arthritis - L knee, multiple aspirations, not on any medications at this time since September
#Acquired factor VIII def.
#hemorrhages, no active bleeding
#Acute blood loss anemia
#osteoarthritis
#adrenal insufficiency, history of
DVT proph- PCDs
Full Code
Anticipated Discharge: 24 - 48 hours
Subjective/Interval History
-
Date of Service: June 24, 2023
Persistent skin redness which involves the lower extremity abdomen and the back. No itching. No tongue swelling.
She is currently off of oxygen but she has not seen significant improvement with antibiotics with regards to her breathing. Still having a cough mostly dry.
Constipated.
Objective Data
-
Labs:
Laboratory Results
06/24/23
12:46
WBC Pending
Hgb Pending
Hct Pending
Plt Count Pending
Sodium Pending
Potassium Pending
Chloride Pending
Carbon Dioxide Pending
BUN Pending
Creatinine Pending
Glucose Pending
Calcium Pending
Vital Signs:
Vital Signs
Temp Pulse Resp BP Pulse Ox
98.1 F 80 16 121/64 92
06/24/23 07:35 06/24/23 07:35 06/24/23 07:35 06/24/23 07:35 06/24/23 07:35
I&O
06/23/23 06/24/23 06/25/23
06:59 06:59 06:59
Intake Total 840 / 840 1220 / 1220
Balance 840 / 840 1220 / 1220
Review of Systems
-
Constitutional: Denies Fever
Cardiac: Denies Chest Pain
Abdomen/GI: Denies Abdominal Pain, Nausea or Vomiting
Neuro: Denies Dizzy
Physical Exam
-
General: No Apparent Distress
HEENT: Moist Mucous Membranes
Respiratory: Crackles (Coarse in the Rt lower zone,no associated wheeze) and Non Labored Respirations; Negative Accessory Resp Muscle Use
Cardiac: Regular Rhythm and S1/S2
GI: Soft
Skin: Rash (large areas of redness in lower ext,abdo and back)
Neuro: AO x 3
Psych: Calm
Data Reviewed
-
Labs: Labs Reviewed by me (pending)
[2023-06-24 13:27] LABS: Hematocrit 35.5 % (37.0-47.0); Hemoglobin 12.2 g/dL (12.0-16.0); Mean Corp Hgb Conc. 34.4 g/dL (33.0-37.0); Mean Corpuscular Hgb 30.8 pg (27.0-31.0); Mean Corpuscular Volume 89.6 fL (81.0-99.0); Mean Platelet Volume 8.7 fL (7.4-10.4); Platelet Count 295 10^3/uL (130-400); Red Blood Cell Count 3.96 10^6/uL (4.20-5.40); Red Cell Dist. Width 14.3 % (11.5-14.5); White Blood Cell Count 15.7 10^3/uL (4.8-10.8)
[2023-06-24 13:38] LABS: Blood Urea Nitrogen 13 mg/dl (7-17); Calcium 8.5 mg/dl (8.4-10.2); Carbon Dioxide 22 mmol/L (22-30); Chloride 100 mmol/L (98-107); Estimated Creatinine Clearance 84 ml/min; Glucose 113 mg/dl (70-99); Potassium 3.6 mmol/L (3.5-5.1); Sodium 131 mmol/L (135-145); eGFR > 60.00
[2023-06-24 15:30] VITALS: BP 130/90
[2023-06-24] MEDS: MEDROL 32 MG PO (20:34)
[2023-06-24] MEDS: ROBITUSSIN DM 10 ML PO (20:35)
[2023-06-24 23:36] VITALS: BP 144/69
[2023-06-25 05:30] VITALS: BMI 27.6
[2023-06-25] MEDS: MEDROL 32 MG PO (06:00)
[2023-06-25] MEDS: SYNTHROID 75 MCG PO (06:00)
[2023-06-25] MEDS: BENADRYL 50 MG PO (07:07)
[2023-06-25 07:30] VITALS: BP 150/76
[2023-06-25] MEDS: LEVAQUIN 750 MG PO (09:59)
[2023-06-25] MEDS: MIRALAX 17 GRAMS PO (09:59)
[2023-06-25] MEDS: VITAMIN B-12 100 MCG PO (09:59)
--- NOTE | 2023-06-25 10:45 | CM ---
Addendum entered by Deneen Carlin 06/25/23 16:31:
TT to MD and requested VN order.
Addendum entered by Deneen Carlin 06/25/23 16:20:
Home oxygen assessment completed, does not meet criteria.
IMM reviewed and signed.
Plan: home with VN
[facility] VN

Original Note:
Patient seen bedside.
Patient appears BEE.
Patient just returned from CT scan.
Plan: no needs anticipated, will continue to follow.
[2023-06-25 11:35] LABS: Hematocrit 38.6 % (37.0-47.0); Hemoglobin 13.5 g/dL (12.0-16.0); Mean Corpuscular Volume 88.5 fL (81.0-99.0); Red Blood Cell Count 4.36 10^6/uL (4.20-5.40); Red Cell Dist. Width 14.1 % (11.5-14.5); White Blood Cell Count 11.5 10^3/uL (4.8-10.8)
[2023-06-25 11:51] LABS: Blood Urea Nitrogen 14 mg/dl (7-17); Calcium 8.3 mg/dl (8.4-10.2); Carbon Dioxide 20 mmol/L (22-30); Chloride 104 mmol/L (98-107); Estimated Creatinine Clearance 84 ml/min; Glucose 128 mg/dl (70-99); Sodium 132 mmol/L (135-145); eGFR > 60.00
[2023-06-25 12:26] VITALS: O2SAT 95
[2023-06-25 13:09] LABS: Potassium 4.3 mmol/L (3.5-5.1)
--- NOTE | 2023-06-25 13:14 | W.PN.HOSP.TC ---
Today's Communication/Plan
-
Repeat labs
Home O2 eval
DC planning
Assessment / Plan
Assessment / Plan
IMPRESSION:The patient is a 72-year-old female with past medical history of low factor XIII level, postop hemorrhage after right hip replacement, right upper extremity DVT associated with PICC line on Eliquis until when it was discontinued
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
congestion that has progressively worsened over the past week. Pulse oximetry was 88% on room air. She is not on home oxygen.
#Bacterial pneumonia, bilateral multifocal pneumonia, associated with hypoxia, CXR with multifocal pneumonia right worse than left. Small right pleural effusion. Leukocytosis 14.3, hypoxia, tachypnea
-Afebrile and initial improvement in white count noted with worsening again which I suspect may be reactive to her drug reaction.
-Blood cultures negative; COVID-19 and influenza negative.
-Will treat this as community-acquired pneumonia. Immunocompetent host. Switched to IV ceftriaxone and doxycycline 2/ but then developed generalized redness suspect secondary to ceftriaxone. Hold further cephalosporins. appt ID input - now on
Levaquin.
(Patient allergies lists cephalosporins along with penicillin. Patient is not certain about this medicine. Cephalosporin allergy issues was looked into further- Appears [employer] linked cephalosporin allergy back from 2007 migration. She has
tolerated cefazolin in the past )
-Sputum Cx usual joaquin
-O2 per NC-currently improved -on RA
Despite some objective improvements patient is still feeling short of breath without much improvement. A CT of the chest was obtained which showed no PE and Bilateral parenchymal airspace opacity throughout both lungs, compatible with pneumonia.
More confluent parenchymal opacity within the left lower lobe, which could represent pneumonia and/or atelectasis.
Small bilateral pleural effusions.
CW Levaquin as planned ;follow up CXR in 3-4 weeks
Home O2 eval
#Hypoxic respiratory failure, not on home oxygen in the setting of history of partial right-sided pneumonectomy
-wean O2 per protocol, on RA
#Diarrhea, watery non-bloody
-Self limiting
# Hyponatremia - Euvolemic . Urine lytes and repeat labs pending .FR for now
Chronic medical issues:
#Essential HTN, stable, not on medication
#Hypothyroidism
-TSH
-Synthroid
#Rheumatoid arthritis - L knee, multiple aspirations, not on any medications at this time since September
#Acquired factor VIII def.
#hemorrhages, no active bleeding
#Acute blood loss anemia
#osteoarthritis
#adrenal insufficiency, history of
DVT proph- PCDs
Full Code
Anticipated Discharge: Today
Subjective/Interval History
-
Date of Service: June 25, 2023
Improved oxygenation
SOB on exertion
Cough which is dry mostly
Denies N/V
Tolerating diet
No Diarrhea now
Objective Data
-
Labs:
Laboratory Results
06/25/23
11:16
WBC 11.5 H
Hgb 13.5
Hct 38.6
Plt Count
Sodium 132 L
Potassium 4.3
Chloride 104
Carbon Dioxide 20 L
BUN 14
Creatinine 0.5 L
Glucose 128 H
Calcium 8.3 L
Vital Signs:
Vital Signs
Temp Pulse Resp BP Pulse Ox
97.2 F 69 16 150/76 96
06/25/23 07:30 06/25/23 07:30 06/25/23 07:30 06/25/23 07:30 06/25/23 07:30
I&O
06/24/23 06/25/23 06/26/23
06:59 06:59 06:59
Intake Total 1220 / 1220 960 / 960
Balance 1220 / 1220 960 / 960
Review of Systems
-
Constitutional: Denies Fever or Chills
EENT: Denies Sore Throat
Cardiac: Denies Chest Pain
Abdomen/GI: Denies Abdominal Pain
Neuro: Denies Dizzy
Physical Exam
-
General: No Apparent Distress
HEENT: Moist Mucous Membranes
Respiratory: Crackles (BL in basilar area ) and Non Labored Respirations; Negative Wheezes or Accessory Resp Muscle Use
Cardiac: Regular Rhythm and S1/S2
GI: Soft
Neuro: AO x 3
Psych: Calm
Data Reviewed
-
Labs: Labs Reviewed by me
--- NOTE | 2023-06-25 14:28 | W.PN.ID1 ---
Date of Service
Date of Service: June 25, 2023
Today's Communication
Continue abx.
Assessment / Plan
Pneumonia (CAP)
Leukocytosis
- rising
Generalized rash; suspected secondary to recent ceftriaxone administration
- improved
Multiple antibiotic allergies
HTN
Hx breast cancer
Hypothyroid
Osteoarthritis
Acquired factor VIII deficiency
Cholelithiasis
Adrenal insufficiency
Rheumatoid arthritis
Recommendations:
Continue Levaquin 750 mg p.o. daily x 3 additional days
Monitor WBC
Legionella and pneumococcal urinary antigens negative
Follow-up CXR in 4 to 6 weeks.
����������������������������������������������������������
Chief Complaint
-: Pneumonia
Subjective / Review of Systems
Patient seen and examined. Reports breathing is improved.
Review of Systems: No Fever and No Chills
Vital Signs / Physical Exam
Vital Signs
Vital Signs
Temp Pulse Resp BP Pulse Ox
97.2 F 69 16 150/76 96
06/25/23 07:30 06/25/23 07:30 06/25/23 07:30 06/25/23 07:30 06/25/23 07:30
Physical Exam
Constitutional: No Acute Distress, Comfortable, Chronically Ill and Non-toxic
Cardiovascular: S1/S2; Negative S3/S4
Pulmonary: Coarse and Non Labored; Negative Rhonchi
Gastrointestinal: Soft and Non Tender
Neurological: Awake and Alert
Psychological: Calm
Objective Data
Lab Data
Lab Results
06/25/23 11:16
06/25/23 11:16
Estimated Creat Clear 84 ml/min 06/25/23 11:16
Lactic Acid Cancelled 06/22/23 00:30
Total Bilirubin 1.0 mg/dl (0.2-1.3) 06/21/23 20:18
AST 20 U/L (14-36) 06/21/23 20:18
ALT 14 U/L (0-35) 06/21/23 20:18
Alkaline Phosphatase 157 U/L (38-126) H 06/21/23 20:18
Most recent labs reviewed.
Micro Results:
06/21/23 20:18 Blood Culture - Preliminary
Blood/Venous No Growth in 72 hours- Final report to follow
06/21/23 20:18 Blood Culture - Preliminary
Blood/Venous No Growth in 72 hours- Final report to follow
06/22/23 08:47 Respiratory Culture - Final
Sputum Usual Respiratory Niya
Gram Stain - Final
06/23/23 21:24 Legionella Urinary Antigen - Final
Urine Negative for Legionella pneumophila Serogroup 1 antigen.
A negative result does not rule out the possiblity of
Legionella infection due to other serogroups or species of
Legionella. Clinical correlation is recommended.
Streptococcus pneumoniae Antigen (M - Final
Negative for Streptococcus pneumoniae antigen.
A negative result does not exclude infection with
Streptococcus pneumoniae. Clinical correlation is
recommended.
06/22/23 11:10 MRSA Screen - Final
Nose No Methicillin Resistant Staphylococcus aureus isolated.
06/21/23 20:19 Influenza Types A & B ([place]) - Final
Nasal Swab Negative for Influenza A & B, NAAT
Negative results must be combined with clinical observations
and patient history.
Nucleic Acid Amplification test (NAAT)performed on the
[employer] platform.
Imaging:
06/21/2023 CXR (2 view): Scattered moderate interstitial and airspace opacities throughout the right lung and left midlung. Small right pleural effusion.
[2023-06-25 15:30] VITALS: BP 105/63
--- NOTE | 2023-06-25 15:46 | W.DS.TRANS ---
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
-
Discharge Instructions:
Discharge Diagnosis/Procedures Bilateral pneumonia
Diet Regular,Restrict fluids to 48 oz
Additional Diets use 48oz fluid till next blood test - this is
due to low sodium
Activity As tolerated
Driving Restrictions As prior to admission
Blood Work BMP blood work in one - arrange through your PCP
Others Tests chest xray 2 view in 4 weeks -arrange through
your PCP
Other Services PT,VN
Instructions:
Stand-Alone Forms:
Changes to Home Medications: Yes
Discharge Medications:
DC Medications w/original date entered in [facility]
levothyroxine 75 mcg tablet 75 mcg PO DAILY AT 0700 Thyroid 10/26/20
alendronate 70 mg tablet (Fosamax) 70 mg PO SA osteoporosis 09/18/22
cyanocobalamin (vitamin B-12) 100 mcg tablet (Vitamin B-12) 100 mcg PO DAILY Supplement 12/05/22
benzonatate 100 mg capsule 100 mg PO TIDPRN PRN cough #20 caps 06/25/23
dextromethorphan-guaifenesin 10 mg-100 mg/5 mL oral syrup 10 ml PO Q4HPRN PRN cough #1 mL 06/25/23
levofloxacin 750 mg tablet 750 mg PO DAILY #3 tabs 06/25/23
Home Medication Changes
New Medication-Levaquin, cough medicine
Pending Results: No
--- NOTE | 2023-06-25 18:03 | W.DCSUMMARY ---
Discharge Summary
Discharge Data
Date of Admission: 06/21/23
Date of Discharge: 06/25/23
-
Pending Results: No
Hospital Course
Primary diagnosis :
Bilateral pneumonia
Cephalosporin allergy
Secondary diagnosis :
Essential hypertension
Hypothyroidism
Rheumatoid arthritis
Hx Acquired factor VIII deficiency
Hospital course:
The patient is a 72-year-old female with past medical history of low factor XIII level, postop hemorrhage after right hip replacement, right upper extremity DVT associated with PICC line on Eliquis until when it was discontinued (resolved
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
that has progressively worsened over the past week. Pulse oximetry was 88% on room air. She is not on home oxygen.
She was diagnosed to have bilateral multifocal pneumonia.
She was nonbacteremic.
She had allergic reaction to ceftiaxone.
Was seen by ID and antibiotic switched to Levaquin
She did well , white count improved, hypoxia resolved
COVID-19 and influenza negative.
Sputum Cx usual joaquin�
Due to slow resolving of symptoms while in being admitted a CT of the chest was obtained which showed no PE and Bilateral parenchymal airspace opacity throughout both lungs, compatible with pneumonia. More confluent parenchymal opacity within the
left lower lobe, which could represent pneumonia and/or atelectasis.Small bilateral pleural effusions.
Levaquin is planned for another 4 days ;follow up CXR in 3-4 weeks
Home O2 eval did not show need of it.
# Mild hyponatremia - Euvolemic . Urine lytes could not be completed prior to discharge. Na was 132. Advised fluid restriction for a week and repeat BMP in a week.
Human Resources Records Clerk on board
ID Dr. Farfan
Discharge Plan
-
Patient Disposition: Home with Home Care
Discharge Diagnosis/Procedures: Bilateral pneumonia
Condition: Fair
Diet: Regular and Restrict fluids to 48 oz
Additional Diets: use 48oz fluid till next blood test - this is due to low sodium
Activity: As tolerated
Driving Restrictions: As prior to admission
Blood Work: BMP blood work in one - arrange through your PCP
Others Tests: chest xray 2 view in 4 weeks -arrange through your PCP
Other Services: VN and PT
Referrals:
Rosi Hall MD [Family Provider] - in less than 1 week
Prescriptions:
New
dextromethorphan-guaifenesin 10-100 mg/5 mL Syrup
10 ml PO Q4HPRN PRN (Reason: cough) Qty: 1 0RF
Rx Instructions:
buy OTC
levofloxacin 750 mg Tablet
750 mg PO DAILY Qty: 3 0RF
benzonatate 100 mg Capsule
100 mg PO TIDPRN PRN (Reason: cough) Qty: 20 0RF
Rx Instructions:
If robitussin DM doesnt help cough use this
Continued
levothyroxine 75 MCG tablet
75 mcg PO DAILY AT 0700
alendronate [Fosamax] 70 mg Tablet
70 mg PO SA
cyanocobalamin (vitamin B-12) [Vitamin B-12] 100 mcg Tablet
100 mcg PO DAILY
Discharge Orders:
Discharge Patient (As Directed); Ordered 06/25/23
Ordered By: Nick Valentino
--- NOTE | 2023-06-25 18:30 | PTCARENOTE ---
Pt DC'd to home. Pt given DC instructions and verbalized understanding. Pt escorted home by son.
== END 2023-06-25 18:29 | disposition home health service (06) | DRG 193 ==
LOC: 4 WEST ACU 22:59
PROVIDERS: Emergency Medicine; ADMITTING PHYSICIAN Internal Medicine; ATTENDING PHYSICIAN Internal Medicine; EMERGENCY PHYSICIAN Student in an Organized Health Care Education/Training Program; FAMILY PHYSICIAN Family Medicine; OTHER PHYSICIAN Internal Medicine Infectious Disease
DX: J15.9 Unspecified bacterial pneumonia (principal); J96.91 Respiratory failure, unspecified with hypoxia; D62 Acute posthemorrhagic anemia; E27.40 Unspecified adrenocortical insufficiency; D68.4 Acquired coagulation factor deficiency; J90 Pleural effusion, not elsewhere classified; E87.1 Hypo-osmolality and hyponatremia; E03.9 Hypothyroidism, unspecified; R19.7 Diarrhea, unspecified; L27.0 Generalized skin eruption due to drugs and medicaments taken internally; T36.1X5A Adverse effect of cephalosporins and other beta-lactam antibiotics, initial encounter; T36.4X5A Adverse effect of tetracyclines, initial encounter; Y92.239 Unspecified place in hospital as the place of occurrence of the external cause; I10 Essential (primary) hypertension; M17.12 Unilateral primary osteoarthritis, left knee; R62.7 Adult failure to thrive; M06.9 Rheumatoid arthritis, unspecified; Z85.3 Personal history of malignant neoplasm of breast; Z90.2 Acquired absence of lung [part of]; Z96.653 Presence of artificial knee joint, bilateral; Z96.641 Presence of right artificial hip joint; Z88.0 Allergy status to penicillin; Z88.1 Allergy status to other antibiotic agents; Z91.041 Radiographic dye allergy status; Z79.890 Hormone replacement therapy; Z11.52 Encounter for screening for COVID-19; Z87.01 Personal history of pneumonia (recurrent); Z86.718 Personal history of other venous thrombosis and embolism; Z79.01 Long term (current) use of anticoagulants
CPT/HCPCS: 71046; 71275; 80048; 80053; 83605; 85025; 85027; 87040; 87045; 87046; 87070; 87205; 87427; 87449; 87502; 87811; 87899; 89055; 93005; 96361; 96374; 96375; 97116; 97162; 97530; 99285; Q9967

== ENCOUNTER 2023-06-27 16:40 | Emergency (ER) | payer OTHER, SELFPAY ==
[2023-06-27 16:43] VITALS: BP 154/75; BMI 27.3
[2023-06-27 17:13] LABS: ALT (SGPT) 20 U/L (0-35); AST (SGOT) 30 U/L (14-36); Albumin 2.9 g/dl (3.5-5.0); Alkaline Phosphatase 92 U/L (38-126); Blood Urea Nitrogen 16 mg/dl (7-17); Calcium 8.3 mg/dl (8.4-10.2); Carbon Dioxide 27 mmol/L (22-30); Chloride 103 mmol/L (98-107); Estimated Creatinine Clearance 76 ml/min; Glucose 122 mg/dl (70-99); Sodium 133 mmol/L (135-145); Total Bilirubin 0.8 mg/dl (0.2-1.3); Total Protein 5.5 g/dl (6.3-8.2); eGFR > 60.00
[2023-06-27 19:31] VITALS: BP 163/97
--- NOTE | 2023-06-27 19:45 | ED.GENMED ---
History of Present Illness
<Dexter Kam PA-C - Last Filed: 06/27/23 22:33>
General
Chief Complaint: Cough
Source: patient, records and family
Time Seen by Provider: 06/27/23 19:29
Travel History
Have you had any contact with someone who has COVID-19?: No
Do you have any symptoms of coronavirus? Fever > 100 degrees, chills, cough, shortness of breath, sore throat, loss of taste or smell, muscle aches, or headache?: No
History of Present Illness
History of Present Illness:
73-year-old female with past medical history of lupus, previous breast cancer and lung cancer presenting to the emergency department at request of her primary care physician to be admitted due to failed outpatient antibiotics for which she was being
treated for pneumonia. Patient and son note that patient started with symptoms about 2 weeks ago but was not started on any antibiotics until this past Thursday and was given Levaquin. Patient states she has 1 tablet left but due to persistent
coughing, intermittent shortness of breath, tactile fevers and lack of oral intake she decided to come to the emergency department today. Patient did not take any antipyretics prior to arrival to the emergency department. At time of my evaluation
patient did note just some mild shortness of breath.
Past History
<Dexter Kam PA-C - Last Filed: 06/27/23 22:33>
Past History
ED Past Medical History: HTN, Hypothyroidism and Other (arthritis - L knee, multiple aspirations, last one one week ago.)
Social History
Tobacco: Non-smoker
Alcohol: None
Drug: None
Personal:
Living: with family
Employment: Employed
Review of Systems
<Dexter Kam PA-C - Last Filed: 06/27/23 22:33>
Review of Systems
All Other Systems: ROS reviewed and negative except as documented in HPI and ROS
Phy Exam
<Dexter Kam PA-C - Last Filed: 06/27/23 22:33>
Physical Exam
Physical Exam:
GENERAL: Alert , in no apparent distress
EYE: conjunctiva clear
NECK: Supple
ENT: o/p clr, mmm.
CARDIAC: Regular rate and rhythm
LUNGS: Rhonchorous lung sounds within the posterior lung garza, no wheezing, no accessory muscle use, no tachypnea and patient is in no acute respiratory distress
NEUROLOGICAL: Alert and oriented
SKIN: Warm and dry, skin intact.
MUSCULOSKELETAL: well perfused.
PSYCH: Normal and appropriate interaction.
Scores
<Dexter Kam PA-C - Last Filed: 06/27/23 22:33>
Heart Failure Risk
Heart Failure Risk Score: Not Applicable
Heart Score for Chest Pain Patients
STEMI patient?: Not applicable
Withdrawal Assessment of Alcohol
Withdrawal Assessment Completed?: Not applicable
Course
<Dexter Kam PA-C - Last Filed: 06/27/23 22:33>
Orders/Labs/Results
Orders:
Orders
06/27/23 16:46
Electrocardiogram (*1) Urgent
Reason for Study: Other
Other Reason for Exam: Respiratory Distress
EKG- Treatment ONCE
CR Chest - 2 Views Urgent
Comment:
Reason For Exam: respiratory distress
06/27/23 16:56
Comprehensive Metabolic Panel Urgent
06/27/23 19:31
LevoFLOXacin 750 MG/150 ML [Levaquin] 750 mg in 150 ml IV NOW
06/27/23 19:39
COVID-19 Antigen Urgent
Source: Nasal Swab
Complete Blood Count/With Diff Urgent
Influenza A+B Rapid Molecular Urgent
GUADALUPE Source: Nasal Swab
Specimen Description:
06/27/23 19:44
Aztreonam [Azactam] 2,000 mg IV NOW STA
06/27/23 20:05
Sterile Water [Sterile Water For Injection] 10 ml .ROUTE .[facility]-MED ONE
06/27/23 20:09
Vancomycin [Vancocin] 2,000 mg 0.9% Sodium Chloride 500 ml [Nss] 500 ml IV NOW
06/27/23 20:58
Procalcitonin Urgent
PCT Algorithmm Indication: Respiratory
06/27/23 21:09
Ipratropium/Albuterol Sulfate [Duoneb] 3 ml INH R NOW ONE
Abnormal Lab Results
06/27/23 06/27/23
16:56 19:39
RBC 3.93 L 10^6/uL
(4.20-5.40)
Hct 34.7 L %
(37.0-47.0)
MCH 31.3 H pg
(27.0-31.0)
Abs Immat Gran (auto) 0.8 H 10^3/uL
(0-0.05)
Absolute Monos (auto) 0.9 H 10^3/uL
(0.1-0.6)
Immature Gran % 8.1 H %
(0-0.5)
Lymphocytes % 16.1 L %
(20.5-51.1)
Monocytes % 9.4 H %
(1.7-9.3)
Sodium 133 L mmol/L
(135-145)
Creatinine 0.5 L mg/dL
(0.6-1.0)
Glucose 122 H mg/dl
(70-99)
Calcium 8.3 L mg/dl
(8.4-10.2)
Total Protein 5.5 L g/dl
(6.3-8.2)
Albumin 2.9 L g/dl
(3.5-5.0)
06/27/23 19:39
06/27/23 16:56
Vital Signs
Initial and Last Documented VS:
Initial Vital Signs
Pulse Resp BP Pulse Ox
71 16 154/75 99
06/27/23 16:43 06/27/23 16:43 06/27/23 16:43 06/27/23 16:43
Last Documented Vital Signs
Temp Pulse Resp BP Pulse Ox
97.8 F 65 18 162/74 100
06/27/23 20:01 06/27/23 21:30 06/27/23 21:30 06/27/23 21:00 06/27/23 21:30
Precision Printing Worker consulted with Physician
Precision Printing Worker consulted with physician?: Yes
Name of Physician Consulted: Justice
<Nathanael Rendon MD - Last Filed: 06/27/23 22:58>
Orders/Labs/Results
Orders:
Orders
06/27/23 16:46
Electrocardiogram (*1) Urgent
Reason for Study: Other
Other Reason for Exam: Respiratory Distress
EKG- Treatment ONCE
CR Chest - 2 Views Urgent
Comment:
Reason For Exam: respiratory distress
06/27/23 16:56
Comprehensive Metabolic Panel Urgent
06/27/23 19:31
LevoFLOXacin 750 MG/150 ML [Levaquin] 750 mg in 150 ml IV NOW
06/27/23 19:39
COVID-19 Antigen Urgent
Source: Nasal Swab
Complete Blood Count/With Diff Urgent
Influenza A+B Rapid Molecular Urgent
GUADALUPE Source: Nasal Swab
Specimen Description:
06/27/23 19:44
Aztreonam [Azactam] 2,000 mg IV NOW STA
06/27/23 20:05
Sterile Water [Sterile Water For Injection] 10 ml .ROUTE .[facility]-MED ONE
06/27/23 20:09
Vancomycin [Vancocin] 2,000 mg 0.9% Sodium Chloride 500 ml [Nss] 500 ml IV NOW
06/27/23 20:58
Procalcitonin Urgent
PCT Algorithmm Indication: Respiratory
06/27/23 21:09
Ipratropium/Albuterol Sulfate [Duoneb] 3 ml INH R NOW ONE
Abnormal Lab Results
06/27/23 06/27/23
16:56 19:39
RBC 3.93 L 10^6/uL
(4.20-5.40)
Hct 34.7 L %
(37.0-47.0)
MCH 31.3 H pg
(27.0-31.0)
Abs Immat Gran (auto) 0.8 H 10^3/uL
(0-0.05)
Absolute Monos (auto) 0.9 H 10^3/uL
(0.1-0.6)
Immature Gran % 8.1 H %
(0-0.5)
Lymphocytes % 16.1 L %
(20.5-51.1)
Monocytes % 9.4 H %
(1.7-9.3)
Sodium 133 L mmol/L
(135-145)
Creatinine 0.5 L mg/dL
(0.6-1.0)
Glucose 122 H mg/dl
(70-99)
Calcium 8.3 L mg/dl
(8.4-10.2)
Total Protein 5.5 L g/dl
(6.3-8.2)
Albumin 2.9 L g/dl
(3.5-5.0)
06/27/23 19:39
06/27/23 16:56
Vital Signs
Initial and Last Documented VS:
Initial Vital Signs
Pulse Resp BP Pulse Ox
71 16 154/75 99
06/27/23 16:43 06/27/23 16:43 06/27/23 16:43 06/27/23 16:43
Last Documented Vital Signs
Temp Pulse Resp BP Pulse Ox
97.8 F 65 18 162/74 100
06/27/23 20:01 06/27/23 21:30 06/27/23 21:30 06/27/23 21:00 06/27/23 21:30
<Dexter Kam PA-C - Last Filed: 06/27/23 22:33>
MDM/Problems Addressed
Differential Diagnosis Includes:
Failed outpatient antibiotic treatment, COVID, flu, atypical pneumonia, aspiration pneumonia, Legionella
MDM/Problems Addressed:
73-year-old female presenting emergency department by her primary care physician to be admitted for failed outpatient antibiotics. Interestingly, on record review patient was actually admitted here at this hospital last week for which she was
treated with IV antibiotics and ultimately transition to oral antibiotic Levaquin for which she was started on 2 days ago. Patient was seen by infectious disease who had recommended Levaquin based off of patient's allergies. She had a elevating
leukocytosis but this was downtrending at time of her admission. Legionella and pneumococcal urinary antigens were negative. It was recommended patient have repeat chest x-ray in 4 to 6 weeks. Patient has no fever here, leukocytosis or any signs
of hypoxia. Her chest x-ray does show a progressing bilateral pneumonia and effusions. At this time disposition is pending.
<Dexter Kam PA-C - Last Filed: 06/27/23 22:33>
*Radiology
Radiology exam reviewed: preliminary read by ED provider (Progressed bilateral infiltrates)
*Pulse Oximetry
Patient hypoxic: no
*Critical Care Note
Total Time (30-74mins, 75-104mins- exclusive of procedures): Not Applicable
Data Reviewed
Review of Other/Old Records Reveals: Labs, Records and Discharge Summary
Source: patient, records and family
<Dexter Kam PA-C - Last Filed: 06/27/23 22:33>
Patient Management
Discussion with other providers: Hospitalist and Reclamation Worker
Escalation/DeEscalation of care consider admission/obs:
We did initially attempt to admit the patient due to the chest x-ray findings of worsening pneumonia however after discussion with hospitalist team as well as with infectious disease decision was made to extend patient's antibiotic coverage with
doxycycline by an additional 5 days. Patient was advised to not take her Levaquin tomorrow and she should start the doxycycline tomorrow. I will send patient home with a nebulizer machine and albuterol solution for the nebulizer machine that she
can use as needed for coughing spasms and shortness of breath. Patient and son are both aware of return precautions and are in agreement with this current treatment plan.
ED Attending Note
<Dexter Kam PA-C - Last Filed: 06/27/23 22:33>
-
Portions of this chart may have been created with voice recognition software.� Occasional wrong word or��sound alike� substitutions may have occurred due to the inherent limitations of voice recognition software.
<Nathanael Rendon MD - Last Filed: 06/27/23 22:58>
ED Attending Note
Patient seen and examined by attending physician: Yes
I performed the substantive portion of visit, reviewed & personally made and approve the management plan that is documented in note by myself or SKYLAR.: Yes
ED Attending Note:
73-year-old female asked to return to the ER by her primary physician. Physician had not evaluated her spoke was getting report from the visiting nurse. Patient left the hospital 2 days after pneumonia. She feels essentially unchanged. Still
generally weak still coughing. She is not digressing but not significantly improving.
On exam she is nontoxic chronically ill-appearing she is not hypoxic she is in no respiratory distress she is stable vital signs. She has no fever. She is mildly speaking. She has mild diffuse rhonchi. Heart regular rate and rhythm abdomen
nontender.
Chest x-ray was reported as worsening although my comparison was not significantly changed. Labs are stable. Lengthy discussion with the physicians assistant professor of psychology, hospitalist that eventually infectious disease of inpatient versus outpatient
management. Given her lack of digressing, stable vital signs, normal pulse ox it was decided after consultation that there is no additional benefit to being readmitted. She will have her Levaquin continued for 3 to 4 days.
Discharge Plan
Departure
Patient Disposition: Home (Routine Discharge)
Date of Disposition: 06/27/23
Time of Disposition: 21:02
Patient with high blood pressure during this ER visit?: Yes
Discharge Problem:
Pneumonia
Instructions: Pneumonia, Adult (DC)
Prescriptions:
New
doxycycline hyclate 100 mg tablet
100 mg PO BID 5 Days Qty: 10 0RF
albuterol sulfate 2.5 mg /3 mL (0.083 %) solution for nebulization
2.5 mg inhalation Q6H PRN (Reason: shortness of breath or wheezing) Qty: 180 0RF
No Action
levothyroxine 75 MCG tablet
75 mcg PO DAILY AT 0700
alendronate [Fosamax] 70 mg Tablet
70 mg PO SA
cyanocobalamin (vitamin B-12) [Vitamin B-12] 100 mcg Tablet
100 mcg PO DAILY
levofloxacin 750 mg Tablet
750 mg PO DAILY Qty: 3 0RF
Patient Comments:
PATIENT AWNING HANGER ON 06/25/23
Visbiome 112.5 billion cell Capsule
1 cap PO DAILY
Interventions
Interventions:
*Risk Screen - Suicide Last Done: 06/27/23 16:43
*General Assessment Last Done: 06/27/23 21:46
*Neglect/Abuse Screening Last Done: 06/27/23 16:43
ED- Fall Risk Assessment Last Done: 06/27/23 20:14
*ED COVID-19 Vaccine History Last Done: 06/27/23 16:43
*Nursing Disposition Last Done: 06/27/23 21:46
ED- Pulmonary Assessment Last Done: 06/27/23 20:14
Discharge Date and Time
Discharge Date/Time: 06/27/23 21:46
[2023-06-27 20:00] VITALS: BP 168/75
[2023-06-27 20:07] LABS: % Basophils 0.4 % (0-2); % Eosinophils 2.3 % (0-6); % Immature Granulocytes 8.1 % (0-0.5); % Lymphocytes 16.1 % (20.5-51.1); % Monocytes 9.4 % (1.7-9.3); % Neutrophils 63.7 % (42.2-75.2); Absolute Eosinophils 0.2 10^3/uL (0-0.7); Absolute Immature Granulocytes 0.8 10^3/uL (0-0.05); Absolute Lymphocytes 1.5 10^3/uL (1.2-3.4); Absolute Monocytes 0.9 10^3/uL (0.1-0.6); Absolute Neutrophils 5.9 10^3/uL (1.4-6.5); Hematocrit 34.7 % (37.0-47.0); Hemoglobin 12.3 g/dL (12.0-16.0); Mean Corp Hgb Conc. 35.4 g/dL (33.0-37.0); Mean Corpuscular Hgb 31.3 pg (27.0-31.0); Mean Corpuscular Volume 88.3 fL (81.0-99.0); Mean Platelet Volume 8.1 fL (7.4-10.4); Nucleated Red Blood Cells % 0 %; Platelet Count 312 10^3/uL (130-400); Red Blood Cell Count 3.93 10^6/uL (4.20-5.40); Red Cell Dist. Width 14.5 % (11.5-14.5); White Blood Cell Count 9.3 10^3/uL (4.8-10.8)
[2023-06-27 20:09] LABS: COVID-19 Antigen Negative (Negative)
--- NOTE | 2023-06-27 20:52 | EDRN ---
Dr. Rendon in to see patient and speak with patient and family, debate about admitting patient and antibiotics at this time, waiting on decision
[2023-06-27 21:00] VITALS: BP 162/74
[2023-06-27] MEDS: DUONEB 3 ML INH (21:18)
== END 2023-06-27 21:46 | disposition home or self-care (01) ==
LOC: EMR 16:40
PROVIDERS: Emergency Medicine; Physician Assistant Medical; EMERGENCY PHYSICIAN Emergency Medicine; FAMILY PHYSICIAN Family Medicine
DX: J18.9 Pneumonia, unspecified organism (principal); I10 Essential (primary) hypertension; Z11.52 Encounter for screening for COVID-19
CPT/HCPCS: 99285; 94640; 71046; 80053; 85025; 87502; 87811; 93005

== ENCOUNTER → 2023-07-21 09:50 | Outpatient (REF) | payer OTHER, SELFPAY | LOC: HWRAD 09:50 | PROVIDERS: ATTENDING PHYSICIAN Nurse Practitioner Family | DX: J18.9 Pneumonia, unspecified organism (principal) | CPT/HCPCS: 71046 ==

== ENCOUNTER → 2023-08-31 14:25 | Outpatient (REF) | payer OTHER, SELFPAY | LOC: HWRAD 14:25 | PROVIDERS: ATTENDING PHYSICIAN Nurse Practitioner Family; FAMILY PHYSICIAN Family Medicine | DX: Z78.0 Asymptomatic menopausal state (principal) | CPT/HCPCS: 77080 ==

== ENCOUNTER → 2023-10-29 12:31 | Outpatient (REF) | payer OTHER, SELFPAY | LOC: WOUND 12:31 | PROVIDERS: ATTENDING PHYSICIAN Surgery; FAMILY PHYSICIAN Family Medicine | DX: I89.0 Lymphedema, not elsewhere classified (principal); I87.2 Venous insufficiency (chronic) (peripheral); L97.229 Non-pressure chronic ulcer of left calf with unspecified severity | CPT/HCPCS: 99203 ==

== ENCOUNTER → 2023-11-18 11:53 | Outpatient (REF) | payer OTHER, SELFPAY | LOC: HWRAD 11:53 | PROVIDERS: ATTENDING PHYSICIAN Nurse Practitioner Family | DX: R93.89 Abnormal findings on diagnostic imaging of other specified body structures (principal) | CPT/HCPCS: 71046 ==

== ENCOUNTER → 2023-11-25 10:28 | Outpatient (REF) | payer OTHER, SELFPAY | LOC: HWWDC 10:28 | PROVIDERS: ATTENDING PHYSICIAN Family Medicine; FAMILY PHYSICIAN Nurse Practitioner Family | DX: Z12.31 Encounter for screening mammogram for malignant neoplasm of breast (principal) | CPT/HCPCS: 77063; 77067 ==

== ENCOUNTER 2024-05-17 06:21 | Day surgery (SDC) | payer OTHER, SELFPAY | END 2024-05-17 13:50 | disposition home or self-care (01) | LOC: GI 06:21 | PROVIDERS: ATTENDING PHYSICIAN Internal Medicine Gastroenterology; FAMILY PHYSICIAN Family Medicine | DX: Z12.11 Encounter for screening for malignant neoplasm of colon (principal); K64.0 First degree hemorrhoids; K63.89 Other specified diseases of intestine; R19.4 Change in bowel habit | CPT/HCPCS: G0121 ==

== ENCOUNTER → 2024-11-04 14:29 | Outpatient (REF) | payer MEDICARE, OTHER, SELFPAY | LOC: HWRAD 14:29 | PROVIDERS: ATTENDING PHYSICIAN Nurse Practitioner Family; FAMILY PHYSICIAN Family Medicine | DX: R06.89 Other abnormalities of breathing (principal) | CPT/HCPCS: 71046 ==

== ENCOUNTER 2024-11-05 20:02 | Inpatient (IN) | payer MEDICARE, OTHER, SELFPAY ==
[2024-11-05] VITALS (9 sets, daily range): BP systolic 95–166; BP diastolic 50–91; BMI 27.5; BMI 27.2
[2024-11-05] MEDS: NSS 1000 IV ×2 (18:11→21:35)
[2024-11-05 18:18] LABS: % Basophils 0.9 % (0-2); % Eosinophils 0.5 % (0-6); % Immature Granulocytes 2.2 % (0-0.5); % Lymphocytes 7.5 % (20.5-51.1); % Monocytes 8.4 % (1.7-9.3); % Neutrophils 80.5 % (42.2-75.2); Absolute Basophils 0.1 10^3/uL (0-0.2); Absolute Eosinophils 0.1 10^3/uL (0-0.7); Absolute Immature Granulocytes 0.3 10^3/uL (0-0.05); Absolute Lymphocytes 1.1 10^3/uL (1.2-3.4); Absolute Monocytes 1.2 10^3/uL (0.1-0.6); Absolute Neutrophils 11.3 10^3/uL (1.4-6.5); Hematocrit 36.3 % (37.0-47.0); Hemoglobin 12.7 g/dL (12.0-16.0); Mean Corpuscular Volume 88.5 fL (81.0-99.0); Mean Platelet Volume 8.9 fL (7.4-10.4); Nucleated Red Blood Cells % 0 %; Platelet Count 229 10^3/uL (130-400); Red Cell Dist. Width 13.6 % (11.5-14.5)
[2024-11-05 18:27] LABS: INR 1.14; Lactic Acid 1.5 mmol/L (0.7-2.0); PT 14.9 Sec (11.4-14.6)
[2024-11-05 18:28] LABS: APTT 35.8 Sec (23.4-35.0)
[2024-11-05 18:33] LABS: COVID-19 Antigen Negative (Negative)
--- NOTE | 2024-11-05 18:34 | ED.GENMED ---
History of Present Illness
General
Chief Complaint: Breathing Problem
Time Seen by Provider: 11/05/24 17:32
History of Present Illness
History of Present Illness:
74-year-old female with history of rheumatoid arthritis, hypertension, thyroid disease presenting to the emergency department for shortness of breath. Patient reports cough for the past week. In the middle of the week started to have some
diarrhea. Yesterday she went to her doctor because she was also having sore throat. She had a chest x-ray that was allegedly negative for acute pneumonia, however was positive for strep throat. She was started on an antibiotic, however has not
started that antibiotic as of yet cough is been productive. Denies chest pain. Denies abdominal pain. Denies fever. Does note history of pneumonia in the past. Denies additional acute medical complaints.
Past History
Past History
ED Past Medical History: HTN, Hypothyroidism and Other (arthritis - L knee, multiple aspirations, last one one week ago.)
Social History
Tobacco: Non-smoker
Alcohol: None
Drug: None
Personal:
Living: with family
Employment: Employed
Phy Exam
Physical Exam
Physical Exam:
General: Well-appearing, no clinical signs of dehydration, nontoxic and in no acute distress
HEENT: protecting airway
Neck: appears supple
CV: Normal heart rate, regular rhythm
Resp: Mild tachypnea with crackles and rhonchi at the bases bilaterally.
Abd: Soft and non-distended, no tenderness to palpation
Extremities: No deformities, no swelling
Neuro: alert, no focal neurologic deficit
: deferred
Rectal: deferred
Psych: Normal affect
Skin: Intact
Scores
Heart Failure Risk
Heart Failure Risk Score: Not Applicable
Sepsis
Sepsis Screening
Sepsis Assessment: Sepsis
Sepsis Screen
Sepsis Screen: Sepsis
Date: 11/06/24
Time: 01:32
Course
Orders/Labs/Results
Orders:
Orders
11/05/24 Dinner
Regular
At Your Request: Non-Participating
Does patient need a safe tray?: No
11/05/24 17:48
Electrocardiogram (*1) Urgent
Reason for Study: Other
Other Reason for Exam: sepsis
EKG- Treatment ONCE
CR Chest - 2 Views Urgent
Comment:
Reason For Exam: SOB, suspect pneumonia
11/05/24 17:49
0.9% Sodium Chloride 1000 ml [Nss] 1,000 ml IV BOLUS
11/05/24 18:02
Complete Blood Count/With Diff Urgent
Lactic Acid Q4H
Comment: CANCEL 2nd LACTIC ACID IF 1st LACTIC ACID IS LESS THAN 2
PTT Urgent
Prothrombin Time Urgent
Influenza A+B Rapid Molecular Urgent
GUADALUPE Source: Nasal Swab
Specimen Description:
Rapid Strep Group A Urgent
GUADALUPE Source: Throat/Pharynx
Specimen Description:
Date Specimen was Collected: 11/05/24
Time Specimen was Collected: 17:51
11/05/24 18:04
COVID-19 Antigen Urgent
Source: Nasal Swab
Comprehensive Metabolic Panel Urgent
11/05/24 18:55
Azithromycin 500 mg/250 ml [Zithromax Infusion] 500 mg in 250 ml IV NOW
CefTRIAXone [Rocephin] 1,000 mg IV NOW STA
11/05/24 19:23
Sterile Water [Sterile Water For Injection] 10 ml .ROUTE .STK-MED ONE
11/05/24 19:38
Admit/Transfer Patient As Directed
Co-Sign Provider:
Level of Care: Inpatient admission
Assign to:: Medical/Surgical
Physician / Group: Guerline
Diagnosis: Pneumonia
Reason for Hospitalization: Hypoxia with pneumonia
Expected length of stay greater than two midnights?: Yes
ELOS- Estimated Length of Stay in days: 2
I certify the patient meets the requirements for IP care: Yes
PRN Pain Medication Management As Directed
May give lesser potent ordered pain med per pt: Yes
preference::
Protocol:: Medication orders for pain may be administered in a
manner that supports deferring to patient preference
when the pt is:
- Requesting an ordered lesser potent pain medication.
Least to most potent pain medications are defined
as: acetaminophen < NSAID < tramadol < opioids
(morphine, oxycodone, hydromorphone).
- Requesting a lesser dose of the same medication IF
ORDERED.
- Requesting a less intrusive route of administration
if both routes are prescribed by the provider (PO <
IV).
11/05/24 19:40
Code Status As Directed
Resuscitation Status: Full Code
11/05/24 19:46
Norovirus by PCR Stat
GUADALUPE Source: Feces/Stool
Specimen Description:
Stool Culture Stat
GUADALUPE Source: Feces/Stool
Specimen Description:
11/05/24 20:48
0.9% Sodium Chloride 1000 ml [Nss] 1,000 ml IV 75 mls/hr
Acetaminophen [Tylenol] 650 mg PO Q4HPRN PRN
Guaifenesin [Mucinex] 600 mg PO Q12
Guaifenesin/Dextromethorphan [Robitussin Dm] 5 ml PO Q4HPRN PRN
Loperamide [Imodium] 2 mg PO Q6HPRN PRN
Metoclopramide [Reglan] 10 mg IV Q6HPRN PRN
11/05/24 20:48
Legionella Urinary Antigen Routine
GUADALUPE Source: Urine
Specimen Description:
Strep pneumoniae Antigen Routine
GUADALUPE Source: Urine
Specimen Description:
Activity As Directed
Activity Level: Out of Bed-Early Mobility
Intake/ Output As Directed
Frequency: Per unit guidelines
Vital Signs As Directed
Frequency: Per unit guidelines
Weight As Directed
Frequency: Once
Comment: on admission
O2 Therapy [RESP] Routine
Titrate/Wean O2 to maintain O2 sat greater than (%): 93
Special Instructions: Wean as tolerated
Pulse Ox/cont/shift [RESP] Routine
Quantity: 1
Special Instructions: notify provider if SPO2 < 91%
Rx Incentive Spirometry [RESP] Routine
Frequency: q1h while awake
Pt Eval And Treat Routine
Activity Level: With Assistance
DX Deep Vein Thrombosis Video Routine
11/05/24 21:48
Respiratory Culture/Gram Stain Urgent
GUADALUPE Source: Sputum
Specimen Description:
Date Specimen was Collected: 11/05/24
Time Specimen was Collected: 21:45
Sputum Culture [Respiratory Culture/Gram Stain] Stat
GUADALUPE Source: Sputum
Specimen Description:
Date Specimen was Collected: 11/05/24
Time Specimen was Collected: 21:44
11/06/24 06:00
Basic Metabolic Panel IN AM
Complete Blood Count/No Diff IN AM
Levothyroxine [Synthroid] 75 mcg PO SUMOTUWETHFR
11/06/24 08:00
Cholecalciferol (Vitamin D3) [VITAMIN D3 (cholecalciferol)] 25 mcg PO DAILY
Escitalopram Oxalate [Lexapro] 10 mg PO DAILY
Losartan [Cozaar] 25 mg PO DAILY
11/06/24 18:00
Enoxaparin Sodium [Lovenox] 40 mg SC QPM
11/06/24 19:30
Azithromycin 500 mg/250 ml [Zithromax Infusion] 500 mg in 250 ml IV Q24H
CefTRIAXone [Rocephin] 1,000 mg IV Q24H
Abnormal Lab Results
11/05/24 11/05/24
18:02 18:04
WBC 14.0 H 10^3/uL
(4.8-10.8)
RBC 4.10 L 10^6/uL
(4.20-5.40)
Hct 36.3 L %
(37.0-47.0)
Abs Immat Gran (auto) 0.3 H 10^3/uL
(0-0.05)
Absolute Neuts (auto) 11.3 H 10^3/uL
(1.4-6.5)
Absolute Lymphs (auto) 1.1 L 10^3/uL
(1.2-3.4)
Absolute Monos (auto) 1.2 H 10^3/uL
(0.1-0.6)
Immature Gran % 2.2 H %
(0-0.5)
Neutrophils % 80.5 H %
(42.2-75.2)
Lymphocytes % 7.5 L %
(20.5-51.1)
PT 14.9 H Sec
(11.4-14.6)
APTT 35.8 H Sec
(23.4-35.0)
Sodium 129 L mmol/L
(135-145)
BUN 18 H mg/dl
(7-17)
Glucose 131 H mg/dl
(70-99)
Total Protein 5.5 L g/dl
(6.3-8.2)
Albumin 3.2 L g/dl
(3.5-5.0)
11/05/24 18:02
11/05/24 18:04
Vital Signs
Initial and Last Documented VS:
Initial Vital Signs
Temp Pulse Resp BP Pulse Ox
98.4 F 85 25 95/50 86
11/05/24 17:21 11/05/24 17:21 11/05/24 17:21 11/05/24 17:21 11/05/24 17:21
Last Documented Vital Signs
Temp Pulse Resp BP Pulse Ox
99.4 F 83 19 127/75 93
11/05/24 21:02 11/05/24 21:02 11/05/24 21:02 11/05/24 21:02 11/05/24 21:25
MDM/Problems Addressed
MDM/Problems Addressed:
74-year-old female with history of pretension, rheumatoid arthritis, hypothyroidism presenting to the emergency department for shortness of breath or cough for the past week. Vital signs on arrival are significant for hypoxia.
On exam, patient is in no acute distress, however placed on supplemental O2. Patient however is having constant cough. Rhonchi and rales to the bases. Overall suspect pneumonia. Patient notes that she was also positive for strep throat. Patient
does have some mild erythema to the throat. Will send repeat strep testing as well as flu and COVID. Plan for laboratory analysis including cultures, lactic acid, and chest x-ray imaging.
18:35 - Patient with leukocytosis, however normal lactic acid and no hypotension without concern for severe sepsis or septic shock.
18:50 - Chest x-ray consistent with multifocal pneumonia. Starting antibiotics for community-acquired. Plan for admission secondary to presenting hypoxia.
*Pulse Oximetry
SaO2: 96
Nasal Cannula flow liters per minute: 4
Oxygen Mode of Delivery: Room air
*EKG
Interpreted by ED Provider?: Yes
EKG Intrepretation Date: 11/05/24
EKG Intrepretation Time: 18:39
Interpretation: abnormal
Comparison EKG: no changes (06/27/23)
Heart Rate: 80
Rate: normal
Rhythm: sinus
QRS Pattern: left vent hypertrophy and other (left anterior fascicular block)
*Critical Care Note
Total Time (30-74mins, 75-104mins- exclusive of procedures): Not Applicable
ED Attending Note
-
Portions of this chart may have been created with voice recognition software.� Occasional wrong word or��sound alike� substitutions may have occurred due to the inherent limitations of voice recognition software.
Discharge Plan
Departure
Patient Disposition: Admit
Date of Disposition: 11/05/24
Time of Disposition: 19:15
Presentation/result/management discussed w/ accepting MD/DO: Hospitalist
Condition: Fair
Discharge Problem:
Multifocal pneumonia, Hypoxia
Interventions
Interventions:
*Risk Screen - Suicide Last Done: 11/05/24 17:47
*General Assessment Last Done: 11/05/24 17:47
*Neglect/Abuse Screening Last Done: 11/05/24 17:47
*ED- Fall Risk Assessment Last Done: 11/05/24 17:47
*ED COVID-19 Vaccine History Last Done: 11/05/24 17:47
*Nursing Disposition Last Done: 11/05/24 20:45
VE-Mrlhpp-Jatayubwof Assessment Last Done: 11/05/24 17:50
ED- Cardiac Assessment Last Done: 11/05/24 17:50
ED- Pulmonary Assessment Last Done: 11/05/24 17:50
Discharge Date and Time
Discharge Date/Time: 11/05/24 20:45
[2024-11-05 18:42] LABS: ALT (SGPT) 19 U/L (0-35); AST (SGOT) 22 U/L (14-36); Albumin 3.2 g/dl (3.5-5.0); Alkaline Phosphatase 116 U/L (38-126); Blood Urea Nitrogen 18 mg/dl (7-17); Calcium 8.6 mg/dl (8.4-10.2); Carbon Dioxide 25 mmol/L (22-30); Chloride 99 mmol/L (98-107); Estimated Creatinine Clearance 82 ml/min; Glucose 131 mg/dl (70-99); Sodium 129 mmol/L (135-145); Total Bilirubin 0.8 mg/dl (0.2-1.3); Total Protein 5.5 g/dl (6.3-8.2); eGFR > 60.00
--- NOTE | 2024-11-05 19:21 | HPS.HSE ---
Family Physician
-
Family Physician: Rosi Hall MD
Chief Complaint
-
Shortness of breath
History of Present Illness
This is a 74-year-old with past medical history significant for rheumatoid arthritis not currently on medications, remote history of breast cancer with mets to the lung, status post partial pneumonectomy, hypertension, hypothyroid, prior history of
acquired factor VIII deficiency, presenting to the emergency department for worsening shortness of breath.
Patient reports onset of coughing that was productive about 6 days ago. Was associated with shortness of breath and dyspnea exertion. She said she was coughing up brownish and greenish phlegm and a copious amount of it. She reports that few days
after that she developed vomiting and diarrhea and thought that she might of had a viral illness so she did not think he was having pneumonia. She was getting more fatigued and more dyspneic as time went back and she saw her physician when there
ago. There she thought that she might have a strep throat due to pharyngeal examination with some red spots. She had an x-ray which was read as negative. Patient was prescribed some antibiotics for strep throat which she has not started yet. She
has self denies having any sore throat or fevers at home prior to the onset of the cough.
She has no known sick contacts. She is otherwise not been on any antibiotics. She came in today after she called her physician for ongoing worsening dyspnea on exertion and GI symptoms.
History notable for right partial pneumonectomy for a malignant lesion in the remote past. She reports that she has had her chronic scarring on the side.
On arrival in the emergency department she was found to be hypoxic on room air.
She denies any recent antibiotic use.
In the emergency department patient was afebrile, blood pressure was 118/76 with a pulse of 79 she was satting 96% on 2 L. ECG shows a sinus rhythm with PACs and unchanged from prior.
Chest x-ray shows bilateral infiltrates/patchy opacities.
She has a white count of 14 with a left shift. Hemoglobin and platelets are normal. Electrolytes are normal. BUN/creatinine are normal.
Medical History
Past Medical History
Past Medical History: Reports Cancer (Breast), HTN, Hypothyroidism and Other
Additional Past Medical History:
Essential HTN,
Hypothyroidism
arthritis - L knee, multiple aspirations
Acquired factor VIII def.
Hemorrhages
Acute blood loss anemia
Osteoarthritis
Cholelithiasis
Adrenal insufficiency
Right hip fracture
Rheumatoid arthritis off all medications for RA since September 2022 due to bleeding history (medication she was on thought to provoke bleeding)
Breast cancer with met to lung
Past Surgical History: Reports Orthopedic (b/l TKA, hip replacement) and Other
Additional Past Surgical History:
Right partial pneumonectomy due to breast cancer (late ) , mastectomy
Social History
Tobacco: Non-smoker
Alcohol: None
Drug: None
Personal:
Living: With Family
Family History
Family History: Not pertinent
Allergies / Home Medications
Allergies reflects when Allergies were last updated in [employer].
Home Medications with original date entered in [employer]
Allergy/Medication List:
Allergies
Allergy/AdvReac Type Severity Reaction Status Date / Time
Cephalosporins Allergy Hives/Patient Verified 06/21/23 19:56
is
uncertain
about this
med.
Iodinated Contrast Media Allergy Hives Verified 06/21/23 19:56
[Iodinated Contrast- Oral
and IV Dye]
iodine [Iodine] Allergy Hives/topical Verified 06/21/23 19:56
is okay
Penicillins Allergy Hives/occured Verified 06/21/23 19:56
in the 's
Home Medications
levothyroxine 75 mcg tablet 75 mcg PO DAILY AT 0700 Thyroid 10/26/20
alendronate 70 mg tablet (Fosamax) 70 mg PO SA osteoporosis 09/18/22
cyanocobalamin (vitamin B-12) 100 mcg tablet (Vitamin B-12) 100 mcg PO DAILY Supplement 12/05/22
Review of Systems
-
History Source: Patient
Constitutional: Reports No Symptoms
EENT: Reports No Symptoms
Respiratory: Reports Cough and Trouble Breathing
Cardiac: Reports No Symptoms
Abdomen/GI: Reports No Symptoms
: Reports No Symptoms
Musculoskeletal: Reports No Symptoms
Skin: Reports No Symptoms
Neurological: Reports No Symptoms
Endocrine: Reports No Symptoms
Hematologic/Lymphatic: Reports No Symptoms
Psych: Reports No Symptoms
Physical Exam
Vital Signs
Vital Signs
Temp Pulse Resp BP Pulse Ox
98.4 F 79 22 118/76 96
11/05/24 17:21 11/05/24 18:30 11/05/24 18:30 11/05/24 18:30 11/05/24 18:41
Physical Exam
General: Well Developed, Well Nourished, Comfortable and Conversant
HEENT: NormoCephalic, Anicteric, Moist mucous membranes and Oxygen
Respiratory: Rales, Rhonchi (right middle and lower, left lower) and Non Labored Respirations
Cardiac: S1/S2 and Carotid Pulses
GI: Soft, Non Tender and Non Distended
Musculoskeletal: No Clubbing, No Cyanosis and No Edema
Skin: Warm and Dry
Neuro: AO x 3, No Motor Deficits and Nonfocal/grossly intact
Psych: Calm
Laboratory Results
-
11/05/24 18:02
11/05/24 18:04
Laboratory Results
PT 14.9 Sec (11.4-14.6) H 11/05/24 18:02
INR 1.14 11/05/24 18:02
APTT 35.8 Sec (23.4-35.0) H 11/05/24 18:02
Lactic Acid Cancelled 11/05/24 22:00
Total Bilirubin 0.8 mg/dl (0.2-1.3) 11/05/24 18:04
AST 22 U/L (14-36) 11/05/24 18:04
ALT 19 U/L (0-35) 11/05/24 18:04
Alkaline Phosphatase 116 U/L (38-126) 11/05/24 18:04
Data Reviewed
-
Diagnostic Radiology: Image Personally Visualized and interpreted and Report Reviewed by me
Medical Tests (Nuc Med, Echo, EKG etc): Image Personally Visualized and interpreted
Lab Data: Labs Reviewed by me
Old Records: Reviewed
Impression/Plan
-
IMPRESSION:
74-year-old female presenting to the emergency department with cough, shortness of breath and found to be hypoxic requiring 2 L of oxygen. Chest x-ray shows bilateral infiltrates which are new compared to prior. She has a leukocytosis but remains
afebrile. Presentation is also notable for nausea vomiting and some diarrhea. She has a sodium of 129 but labs otherwise unremarkable. She remains hemodynamically stable. Cov/Flu negative.
PLAN:
Pneumonia -suspect community-acquired pneumonia, patient is not currently immunosuppressed and is not on any antibiotics recently. Does have history of pneumonectomy and scar tissue but otherwise no primary underlying lung pathology. Not septic at
this time but hypoxic on 2 L.
- Admit to [facility]
- Blood cultures
- Sputum culture
- IV ceftriaxone and azithromycin for now
- MRSA swab
- Check urine Legionella antigen as well as pneumococcal antigen
- Strep throat pending,
- Supportive measures with cough suppression, antiemetics and pain control
Nausea vomiting diarrhea -suspect possibility is a viral gastroenteritis/viral pneumonia. Cannot rule out Legionella yet but unlikely
- Supportive measures with IV fluids, antiemetics
- Stool studies
- Imodium as needed
Hyponatremia -recent fluid losses
- Rule out Legionella
- Fluid supplementation
- Check TSH, continue levothyroxine
DVT prophylaxis�Lovenox subcu
CODE STATUS�full code
[2024-11-05] MEDS: ROCEPHIN 1000 MG IV (19:32)
[2024-11-05] MEDS: ZITHROMAX INFUSION 250 IV (19:57)
[2024-11-05] MEDS: MUCINEX 600 MG PO (21:34)
[2024-11-05] MEDS: TYLENOL 650 MG PO (21:36)
[2024-11-06] VITALS (7 sets, daily range): BP systolic 119–142; BP diastolic 57–88; PULSE 72; O2SAT 93
[2024-11-06] MEDS: ROBITUSSIN DM 5 ML PO ×2 (02:35→08:37)
[2024-11-06] MEDS: SYNTHROID 75 MCG PO (05:14)
[2024-11-06 06:19] LABS: Hematocrit 32.3 % (37.0-47.0); Hemoglobin 11.1 g/dL (12.0-16.0); Mean Corp Hgb Conc. 34.4 g/dL (33.0-37.0); Mean Corpuscular Hgb 30.5 pg (27.0-31.0); Mean Corpuscular Volume 88.7 fL (81.0-99.0); Mean Platelet Volume 9.1 fL (7.4-10.4); Platelet Count 209 10^3/uL (130-400); Red Blood Cell Count 3.64 10^6/uL (4.20-5.40); Red Cell Dist. Width 13.9 % (11.5-14.5); White Blood Cell Count 13.9 10^3/uL (4.8-10.8)
[2024-11-06 06:41] LABS: Blood Urea Nitrogen 15 mg/dl (7-17); Calcium 8.1 mg/dl (8.4-10.2); Carbon Dioxide 23 mmol/L (22-30); Chloride 105 mmol/L (98-107); Estimated Creatinine Clearance 82 ml/min; Glucose 99 mg/dl (70-99); Potassium 3.8 mmol/L (3.5-5.1); Sodium 131 mmol/L (135-145); eGFR > 60.00
[2024-11-06] MEDS: MUCINEX 600 MG PO ×2 (08:11→20:38)
[2024-11-06] MEDS: LEXAPRO 10 MG PO (08:11)
[2024-11-06] MEDS: VITAMIN D3 (cholecalciferol) 25 MCG PO (08:12)
[2024-11-06] MEDS: COZAAR 25 MG PO (08:12)
[2024-11-06] MEDS: NSS 1000 IV (10:14)
--- NOTE | 2024-11-06 13:06 | W.PN.HOSP.TC ---
Today's Communication/Plan
-
Wean O2 as tolerated
Bronchodilators
Anticough meds
Change antibiotics to Levaquin
Assessment / Plan
Assessment / Plan
74-year-old female presenting to the emergency department with cough, shortness of breath and found to be hypoxic requiring 2 L of oxygen. Chest x-ray shows bilateral infiltrates which are new compared to prior. She has a leukocytosis but remains
afebrile. Presentation is also notable for nausea vomiting and some diarrhea. She has a sodium of 129 but labs otherwise unremarkable. She remains hemodynamically stable. Cov/Flu negative.
PLAN:
Acute hypoxic respiratory insufficiency
Suspected secondary bacterial pneumonia
-suspect community-acquired pneumonia, patient is not currently immunosuppressed and is not on any antibiotics recently. Does have history of pneumonectomy and scar tissue but otherwise no primary underlying lung pathology.
- Blood cultures in lab
- Sputum culture in lab
- Reviewing past notes it seems patient has significant hives and redness with penicillins and even with ceftriaxone. Ceftriaxone was discontinued. Azithromycin discontinued. Patient was started on Levaquin. QTc 440.
- MRSA swab
- Check urine Legionella antigen as well as pneumococcal antigen found to be negative
- Strep throat pending,
- Supportive measures with cough suppression, antiemetics and pain control
- Wean oxygen as tolerated. Went down to 4 L from 5 L overnight.
Nausea vomiting diarrhea -suspect possibility is a viral gastroenteritis/viral pneumonia. Cannot rule out Legionella yet but unlikely
- Supportive measures with IV fluids, antiemetics
- Stool studies
- Imodium as needed
Hyponatremia -recent fluid losses
-Slow improvement. Continue with fluids
Hypothyroidism
-Continue with Synthroid
Primary hypertension
-Continue with losartan
DVT prophylaxis�Lovenox subcu
CODE STATUS�full code
Anticipated Discharge: > 48 hours
Subjective/Interval History
-
Date of Service: November 06, 2024
States of persistent cough. Had significant sputum production at home
Denies any fevers or chills
Objective Data
-
Labs:
Laboratory Results
11/06/24
05:54
WBC 13.9 H
Hgb 11.1 L
Hct 32.3 L
Plt Count 209
Sodium 131 L
Potassium 3.8
Chloride 105
Carbon Dioxide 23
BUN 15
Creatinine 0.5 L
Glucose 99
Calcium 8.1 L
Vital Signs:
Vital Signs
Temp Pulse Resp BP Pulse Ox
98.2 F 81 16 133/64 92
11/06/24 11:15 11/06/24 11:15 11/06/24 11:15 11/06/24 11:15 11/06/24 11:15
I&O
11/05/24 11/06/24 11/07/24
06:59 06:59 06:59
Intake Total 480 / 480
Balance 480 / 480
Physical Exam
-
General: Well Developed and No Apparent Distress
HEENT: Normocephalic, Atraumatic, Moist Mucous Membranes and Oxygen (4l)
Respiratory: Rhonchi and Decreased Breath Sounds
Cardiac: Regular Rhythm and S1/S2; Negative Murmur, Rub or Gallop
GI: Soft, Nontender, Nondistended and Normal Bowel Sounds; Negative Organomegaly
Rectal: Deferred by Provider
Musculoskeletal: No Clubbing, No Cyanosis and No Edema
Skin: Negative Rash
Neuro: Awake, AO x 3, No Motor Deficits and Nonfocal/Grossly Intact
Psych: Calm
Data Reviewed
-
Total Time Spent with Patient (in minutes): 55
--- NOTE | 2024-11-06 13:42 | CM ---
Initial assessment completed with patient who lives alone in a 2 story home with no basement and 1 step to enter, B/B on 2nd and 1/2 bath on . [employer] patient was independent in ADL's and ambulation, drives. She does have a SPC, RW and commode but
does not use. Does not have HC-POA. PCP is Dr. Rosi Hall and Pharmacy is [facility] on [address] in [place]. Discharge POC: Home with Ponce MOLINA RN.
[2024-11-06] MEDS: LEVAQUIN 150 IV (14:03)
[2024-11-06] MEDS: TESSALON PERLES 200 MG PO ×2 (14:14→20:38)
[2024-11-06] MEDS: DUONEB 3 ML INH ×2 (14:21→18:09)
[2024-11-06] MEDS: TYLENOL 650 MG PO (16:43)
[2024-11-06] MEDS: LOVENOX 40 MG SC (16:44)
[2024-11-07] MEDS: NSS 1000 IV ×2 (01:07→14:04)
[2024-11-07 03:00] VITALS: BP 122/68
[2024-11-07] MEDS: SYNTHROID 75 MCG PO (05:57)
[2024-11-07 06:15] LABS: % Basophils 0.4 % (0-2); % Eosinophils 0.6 % (0-6); % Immature Granulocytes 3.5 % (0-0.5); % Lymphocytes 5.6 % (20.5-51.1); % Monocytes 6.8 % (1.7-9.3); % Neutrophils 83.1 % (42.2-75.2); Absolute Basophils 0.1 10^3/uL (0-0.2); Absolute Eosinophils 0.1 10^3/uL (0-0.7); Absolute Immature Granulocytes 0.6 10^3/uL (0-0.05); Absolute Lymphocytes 0.9 10^3/uL (1.2-3.4); Absolute Monocytes 1.1 10^3/uL (0.1-0.6); Absolute Neutrophils 13.1 10^3/uL (1.4-6.5); Hematocrit 31.7 % (37.0-47.0); Hemoglobin 10.8 g/dL (12.0-16.0); Mean Corp Hgb Conc. 34.1 g/dL (33.0-37.0); Mean Corpuscular Hgb 30.6 pg (27.0-31.0); Mean Corpuscular Volume 89.8 fL (81.0-99.0); Mean Platelet Volume 8.7 fL (7.4-10.4); Nucleated Red Blood Cells % 0 %; Platelet Count 222 10^3/uL (130-400); Red Blood Cell Count 3.53 10^6/uL (4.20-5.40); Red Cell Dist. Width 13.9 % (11.5-14.5); White Blood Cell Count 15.8 10^3/uL (4.8-10.8)
[2024-11-07 06:41] LABS: Blood Urea Nitrogen 11 mg/dl (7-17); Calcium 8.1 mg/dl (8.4-10.2); Carbon Dioxide 20 mmol/L (22-30); Chloride 105 mmol/L (98-107); Estimated Creatinine Clearance 82 ml/min; Glucose 102 mg/dl (70-99); Sodium 131 mmol/L (135-145); eGFR > 60.00
[2024-11-07 07:25] VITALS: BP 146/86
[2024-11-07] MEDS: DUONEB 3 ML INH ×2 (07:54→19:26)
[2024-11-07] MEDS: MUCINEX 600 MG PO ×2 (08:44→11:33)
[2024-11-07] MEDS: VITAMIN D3 (cholecalciferol) 25 MCG PO (08:45)
[2024-11-07] MEDS: TESSALON PERLES 200 MG PO ×3 (08:45→22:51)
[2024-11-07] MEDS: LEXAPRO 10 MG PO (08:45)
[2024-11-07] MEDS: COZAAR 25 MG PO (08:46)
--- NOTE | 2024-11-07 10:44 | W.PN.HOSP.TC ---
Today's Communication/Plan
-
Monitor vital signs see plan
Wean oxygen as tolerated
Continue with cough meds
Continue antibiotics
Check blood culture, never drawn on admission
Assessment / Plan
Assessment / Plan
74-year-old female presenting to the emergency department with cough, shortness of breath and found to be hypoxic requiring 2 L of oxygen. Chest x-ray shows bilateral infiltrates which are new compared to prior. She has a leukocytosis but remains
afebrile. Presentation is also notable for nausea vomiting and some diarrhea. She has a sodium of 129 but labs otherwise unremarkable. She remains hemodynamically stable. Cov/Flu negative.
PLAN:
Acute hypoxic respiratory insufficiency
Suspected secondary bacterial pneumonia
Sepsis POA likely secondary to above
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
-suspect community-acquired pneumonia, patient is not currently immunosuppressed and is not on any antibiotics recently. Does have history of pneumonectomy and scar tissue but otherwise no primary underlying lung pathology.
- Blood cultures never drawn admission, check blood culture given worsening leukocytosis
- Sputum culture pending
- Reviewing past notes it seems patient has significant hives and redness with penicillins and even with ceftriaxone. Ceftriaxone was discontinued. Azithromycin discontinued. Patient was started on Levaquin. QTc 440.
- MRSA swab
- urine Legionella antigen as well as pneumococcal antigen found to be negative
- Supportive measures with cough suppression, antiemetics and pain control
- Wean oxygen as tolerated. Currently on 3 L
Continue with guaifenesin, Tessalon Perles
Nausea vomiting diarrhea -suspect possibility is a viral gastroenteritis/viral pneumonia.
- Supportive measures with IV fluids, antiemetics
- Stool studies if able
- Imodium as needed
Hyponatremia -recent fluid losses
-Slow improvement. Continue with fluids
Hypothyroidism
-Continue with Synthroid
Primary hypertension
-Continue with losartan
DVT prophylaxis�Lovenox subcu
CODE STATUS�full code
General: Well Developed and No Apparent Distress
HEENT: Normocephalic, Atraumatic, Moist Mucous Membranes and Oxygen (3l)
Respiratory: Rhonchi and Decreased Breath Sounds
Cardiac: Regular Rhythm and S1/S2; Negative Murmur, Rub or Gallop
GI: Soft, Nontender, Nondistended and Normal Bowel Sounds
Musculoskeletal: No Edema
Neuro: Awake, AO x 3, No Motor Deficits and Nonfocal/Grossly Intact
Psych: Calm
I spent a total of 52 minutes with the patient or on the floor. More than 50% of this time involved counseling and coordination of care.
Anticipated Discharge: 24 - 48 hours
Subjective/Interval History
-
Date of Service: November 07, 2024
Still has persistent cough
Objective Data
-
Labs:
Laboratory Results
11/07/24
06:04
WBC 15.8 H
Hgb 10.8 L
Hct 31.7 L
Plt Count 222
Sodium 131 L
Potassium 4.0
Chloride 105
Carbon Dioxide 20 L
BUN 11
Creatinine 0.5 L
Glucose 102 H
Calcium 8.1 L
Vital Signs:
Vital Signs
Temp Pulse Resp BP Pulse Ox
98.7 F 85 18 146/86 95
11/07/24 07:25 11/07/24 08:46 11/07/24 07:55 11/07/24 08:46 11/07/24 07:55
I&O
11/06/24 11/07/24 11/08/24
06:59 06:59 06:59
Intake Total 480 / 480 1650 / 1650
Balance 480 / 480 1650 / 1650
[2024-11-07 11:05] VITALS: BP 135/69
[2024-11-07] MEDS: LEVAQUIN 150 IV (14:04)
[2024-11-07 15:10] VITALS: BP 146/79
--- NOTE | 2024-11-07 15:33 | CM ---
Addendum entered by Gisela Patterson RN 11/07/24 16:15:
IMM reviewed.
Original Note:
Reviewed the chart notes and spoke with the patient at the bedside. CM continues to be available to patient/family and is monitoring medical plan for needs at discharge.
Plan: Discharge to home with Ponce BURGOS.
Ponce Piedra
[2024-11-07] MEDS: TYLENOL 650 MG PO (16:01)
[2024-11-07] MEDS: LOVENOX 40 MG SC (17:41)
[2024-11-07 19:12] VITALS: BP 129/72
[2024-11-07] MEDS: MUCINEX 1200 MG PO (20:14)
[2024-11-07] MEDS: MELATONIN 5 MG PO (22:51)
[2024-11-07 23:18] VITALS: BP 132/73
[2024-11-08 03:17] VITALS: BP 135/88
[2024-11-08] MEDS: NSS 1000 IV (05:30)
[2024-11-08] MEDS: SYNTHROID 75 MCG PO (05:30)
[2024-11-08 06:54] LABS: Blood Urea Nitrogen 10 mg/dl (7-17); Calcium 8.1 mg/dl (8.4-10.2); Carbon Dioxide 22 mmol/L (22-30); Chloride 105 mmol/L (98-107); Estimated Creatinine Clearance 82 ml/min; Glucose 98 mg/dl (70-99); Sodium 131 mmol/L (135-145); eGFR > 60.00
[2024-11-08 06:59] LABS: Hematocrit 32.2 % (37.0-47.0); Mean Corp Hgb Conc. 34.2 g/dL (33.0-37.0); Mean Corpuscular Hgb 30.7 pg (27.0-31.0); Mean Corpuscular Volume 89.9 fL (81.0-99.0); Mean Platelet Volume 8.8 fL (7.4-10.4); Platelet Count 239 10^3/uL (130-400); Red Blood Cell Count 3.58 10^6/uL (4.20-5.40); Red Cell Dist. Width 13.9 % (11.5-14.5); White Blood Cell Count 11.6 10^3/uL (4.8-10.8)
[2024-11-08 07:17] LABS: % Basophils 0.5 % (0-2); % Eosinophils 1.5 % (0-6); % Immature Granulocytes 6.2 % (0-0.5); % Lymphocytes 7.2 % (20.5-51.1); % Neutrophils 76.6 % (42.2-75.2); Absolute Basophils 0.1 10^3/uL (0-0.2); Absolute Eosinophils 0.2 10^3/uL (0-0.7); Absolute Immature Granulocytes 0.7 10^3/uL (0-0.05); Absolute Lymphocytes 0.8 10^3/uL (1.2-3.4); Absolute Monocytes 0.9 10^3/uL (0.1-0.6); Absolute Neutrophils 8.9 10^3/uL (1.4-6.5); Nucleated Red Blood Cells % 0 %
[2024-11-08] MEDS: DUONEB 3 ML INH ×3 (07:39→20:03)
[2024-11-08 07:53] VITALS: BP 144/73
[2024-11-08 08:28] LABS: Osmolality Serum 269 mOsm/kg (275-300)
[2024-11-08 08:36] LABS: Magnesium 1.5 mg/dl (1.6-2.3)
[2024-11-08 08:41] LABS: Osmolality Urine 577 mOsm/kg (300-900)
[2024-11-08] MEDS: VITAMIN D3 (cholecalciferol) 25 MCG PO (08:44)
[2024-11-08] MEDS: COZAAR 25 MG PO (08:44)
[2024-11-08] MEDS: LEXAPRO 10 MG PO (08:44)
[2024-11-08] MEDS: TESSALON PERLES 200 MG PO ×3 (08:44→22:47)
[2024-11-08] MEDS: MUCINEX 1200 MG PO ×2 (08:44→19:46)
[2024-11-08 08:55] LABS: Urine Sodium < 5 mmol/L (30-90)
[2024-11-08 11:32] VITALS: BP 147/82
--- NOTE | 2024-11-08 12:26 | W.PN.HOSP.TC ---
Today's Communication/Plan
-
IV AB
Nebs
Encourage OOB
Wean O2
Assessment / Plan
Assessment / Plan
73-year-old female with cough and shortness of breath
Chest c-xrg-[id number] patchy airspace opacities in both lungs. Chronic peripheral scarring and bronchiolitis in both lungs. Mild cardiomegaly.
EKG-sinus rhythm with PACs. Left anterior fascicular block. LVH. ST depression lateral leads
Awake alert
Coughing
Cardiovascular system S1-S2 appreciated
Chest bilateral rales
Abdomen soft and nontender
No pedal edema
Bilateral hands with changes from rheumatoid arthritis with braces on
# Acute hypoxic respiratory insufficiency
Secondary to bacterial pneumonia
Sepsis present on admission secondary to above
Chronic peripheral scarring of the/bronchiolitis in both lungs
Blood cultures-pending
Sputum cultures pending
Patient had hives and redness with ceftriaxone-was discontinued. Azithromycin was discontinued-started on Levaquin
Urine Legionella and pneumococcal antigen negative
Wean oxygen as tolerated
Mucolytic therapy and Tessalon Perles for symptom
# Nausea vomiting and diarrhea-likely secondary to above
Supportive measures
Stool studies if we can obtain his specimen
# Hypomagnesemia-replace
# Abnormal EKG- Check Trop
# Hyponatremia-osmolality studies noted. Stop IV fluids. Follow-up sodium. There is an element of SIADH. May need to fluid restrict or give Lasix if sodium does not get better or gets worse.
# Hypothyroidism-Continue levothyroxine
# Hypertension-Continue losartan
# Depression-Continue Lexapro
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 Patient has been off of it
# History of PICC line associated right upper extremity DVT 2022
# Rheumatoid Arthritis/Lupus- Previously on Actemra
# Metastatic Breast Cancer s/p Mastectomy, LN resection, Chemo ( Follows with ) and Autologous Bone Marrow Transplant in the at [place]
# History of right lung wedge resection - Metastatic pulmonary nodule from breast cancer
# Degenerative disc disease/arthritis physical limitations/Ambulatory dysfunction
# DVT prophylaxis-subcutaneous Lovenox
# Full code
Part of this note was created using voice recognition system. Occasional wrong word or��sound alike� substitutions may have inadvertently occurred due to the inherent limitations of voice recognition software. If noted kindly bring it to my
attention for correction.
Anticipated Discharge: 24 - 48 hours
Subjective/Interval History
-
Date of Service: November 08, 2024
Objective Data
-
Labs:
Laboratory Results
11/08/24
06:07
WBC 11.6 H
Hgb 11.0 L
Hct 32.2 L
Plt Count 239
Sodium 131 L
Potassium 4.0
Chloride 105
Carbon Dioxide 22
BUN 10
Creatinine 0.5 L
Glucose 98
Calcium 8.1 L
Vital Signs:
Vital Signs
Temp Pulse Resp BP Pulse Ox
99.2 F 82 18 147/82 93
11/08/24 11:32 11/08/24 11:32 11/08/24 11:32 11/08/24 11:32 11/08/24 11:32
I&O
11/07/24 11/08/24 11/09/24
06:59 06:59 06:59
Intake Total 1650 / 1650 2687 / 2687
Balance 1650 / 1650 2687 / 2687
[2024-11-08] MEDS: MAGNESIUM SULFATE 50 IV (12:40)
[2024-11-08 13:27] LABS: Troponin I < 0.012 ng/ml
[2024-11-08 13:48] LABS: Vitamin D, 25-OH*** 34.2 ng/mL (30-80)
[2024-11-08 14:02] LABS: Cortisol, Random 27.3 ug/dl
[2024-11-08] MEDS: LEVAQUIN 150 IV (14:51)
--- NOTE | 2024-11-08 14:59 | CM ---
Reviewed the chart notes. Patient refused PT today. CM continues to be available to patient/family and is monitoring medical plan for needs at discharge.
Plan: Discharge to home with [facility].
[2024-11-08 16:00] VITALS: BP 133/63
[2024-11-08] MEDS: LOVENOX 40 MG SC (18:04)
[2024-11-08 19:01] VITALS: BP 147/75
[2024-11-08] MEDS: MELATONIN PO (22:47)
[2024-11-08 23:09] VITALS: BP 111/64
[2024-11-08] MEDS: MELATONIN 5 MG PO (23:14)
[2024-11-09] VITALS (8 sets, daily range): BP systolic 91–152; BP diastolic 55–85; PULSE 81; O2SAT 94
[2024-11-09] MEDS: SYNTHROID 75 MCG PO (06:43)
[2024-11-09 07:26] LABS: Hematocrit 30.9 % (37.0-47.0); Hemoglobin 10.6 g/dL (12.0-16.0); Mean Corp Hgb Conc. 34.3 g/dL (33.0-37.0); Mean Corpuscular Hgb 30.8 pg (27.0-31.0); Mean Corpuscular Volume 89.8 fL (81.0-99.0); Mean Platelet Volume 8.8 fL (7.4-10.4); Platelet Count 231 10^3/uL (130-400); Red Blood Cell Count 3.44 10^6/uL (4.20-5.40); White Blood Cell Count 9.7 10^3/uL (4.8-10.8)
[2024-11-09] MEDS: DUONEB 3 ML INH ×3 (07:27→20:48)
[2024-11-09 08:13] LABS: Blood Urea Nitrogen 10 mg/dl (7-17); Carbon Dioxide 22 mmol/L (22-30); Chloride 104 mmol/L (98-107); Estimated Creatinine Clearance 82 ml/min; Glucose 93 mg/dl (70-99); Magnesium 1.7 mg/dl (1.6-2.3); Sodium 130 mmol/L (135-145); eGFR > 60.00
[2024-11-09] MEDS: COZAAR 25 MG PO (09:04)
[2024-11-09] MEDS: VITAMIN D3 (cholecalciferol) 25 MCG PO (09:05)
[2024-11-09] MEDS: TESSALON PERLES 200 MG PO ×3 (09:05→22:16)
[2024-11-09] MEDS: MUCINEX 1200 MG PO ×2 (09:05→22:15)
[2024-11-09] MEDS: LEXAPRO 10 MG PO (09:06)
[2024-11-09] MEDS: MAGNESIUM OXIDE 500 MG PO (09:57)
[2024-11-09] MEDS: LASIX 20 MG IV (09:57)
--- NOTE | 2024-11-09 11:29 | W.PN.HOSP.TC ---
Today's Communication/Plan
-
echo
Lasix
wean o2 as tolerated
Assessment / Plan
Assessment / Plan
73-year-old female with cough and shortness of breath
Chest g-ekx-wfsduvct patchy airspace opacities in both lungs. Chronic peripheral scarring and bronchiolitis in both lungs. Mild cardiomegaly.
EKG-sinus rhythm with PACs. Left anterior fascicular block. LVH. ST depression lateral leads
Awake alert
Coughing
Cardiovascular system S1-S2 appreciated
Chest bilateral rales
Abdomen soft and nontender
Mild pedal edema
Bilateral hands with changes from rheumatoid arthritis with braces on
# Acute hypoxic respiratory insufficiency
Secondary to bacterial pneumonia
Sepsis present on admission secondary to above
Chronic peripheral scarring of the/bronchiolitis in both lungs
Blood cultures-pending
Sputum cultures pending
Patient had hives and redness with ceftriaxone-was discontinued. Azithromycin was discontinued-started on Levaquin
Urine Legionella and pneumococcal antigen negative
Wean oxygen as tolerated
Mucolytic therapy and Tessalon Perles for symptom
# Nausea vomiting and diarrhea-likely secondary to above
Supportive measures
Stool studies if we can obtain his specimen
# Hypomagnesemia-replace
# Abnormal EKG- Trop Neg. Pedal edema. Check ECHO
# Hyponatremia-osmolality studies noted. There is an element of SIADH. FR and lasix 20 mg IV now
# Hypothyroidism-Continue levothyroxine
# Hypertension-Continue losartan
# Depression-Continue Lexapro
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 Patient has been off of it
# History of PICC line associated right upper extremity DVT 2022
# Rheumatoid Arthritis/Lupus- Previously on Actemra
# Metastatic Breast Cancer s/p Mastectomy, LN resection, Chemo ( Follows with ) and Autologous Bone Marrow Transplant in the at [place]
# History of right lung wedge resection - Metastatic pulmonary nodule from breast cancer
# Degenerative disc disease/arthritis physical limitations/Ambulatory dysfunction
# DVT prophylaxis-subcutaneous Lovenox
# Full code
D/W RN
Called son, left message
Part of this note was created using voice recognition system. Occasional wrong word or��sound alike� substitutions may have inadvertently occurred due to the inherent limitations of voice recognition software. If noted kindly bring it to my
attention for correction.
Anticipated Discharge: 24 - 48 hours
Subjective/Interval History
-
Date of Service: November 09, 2024
Objective Data
-
Labs:
Laboratory Results
11/09/24
06:38
WBC 9.7
Hgb 10.6 L
Hct 30.9 L
Plt Count 231
Sodium 130 L
Potassium 4.0
Chloride 104
Carbon Dioxide 22
BUN 10
Creatinine 0.5 L
Glucose 93
Calcium 8.0 L
Vital Signs:
Vital Signs
Temp Pulse Resp BP Pulse Ox
98.3 F 81 18 152/85 91
11/09/24 07:10 11/09/24 09:57 11/09/24 07:30 11/09/24 09:57 11/09/24 11:17
I&O
11/08/24 11/09/24 11/10/24
06:59 06:59 06:59
Intake Total 2686 / 2686
Balance 2686 / [id number]
[2024-11-09] MEDS: LEVAQUIN 150 IV (14:13)
--- NOTE | 2024-11-09 14:18 | CM ---
Reviewed the chart notes and spoke with the patient at the bedside. Patient continues on supplement O2. Patient feels she will need rehab prior to transitioning home, 'feels weak'. Discussed area SNFs. Patient reports being at [facility] last
year and would like to return. No precert required for SNF/rehab. CM continues to be available to patient/family and is monitoring medical plan for needs at discharge.
Plan: Discharge to SNF/rehab once medically stable. Referral sent in [facility].
[2024-11-09] MEDS: LOVENOX 40 MG SC (18:10)
[2024-11-09] MEDS: MELATONIN 5 MG PO (22:15)
[2024-11-10 03:39] VITALS: BP 112/57
[2024-11-10 05:34] VITALS: BMI 28.8
[2024-11-10] MEDS: SYNTHROID 75 MCG PO (05:34)
[2024-11-10] MEDS: DUONEB 3 ML INH ×3 (07:19→19:17)
[2024-11-10 07:50] VITALS: BP 152/73
[2024-11-10 07:56] LABS: Blood Urea Nitrogen 14 mg/dl (7-17); Calcium 7.9 mg/dl (8.4-10.2); Carbon Dioxide 24 mmol/L (22-30); Chloride 104 mmol/L (98-107); Estimated Creatinine Clearance 84 ml/min; Glucose 96 mg/dl (70-99); Magnesium 1.6 mg/dl (1.6-2.3); Potassium 3.9 mmol/L (3.5-5.1); Sodium 130 mmol/L (135-145); eGFR > 60.00
[2024-11-10] MEDS: VITAMIN D3 (cholecalciferol) 25 MCG PO (08:27)
[2024-11-10] MEDS: LEXAPRO 10 MG PO (08:27)
[2024-11-10] MEDS: MUCINEX 1200 MG PO ×2 (08:27→19:52)
[2024-11-10] MEDS: MAGNESIUM OXIDE 500 MG PO (08:27)
[2024-11-10] MEDS: TESSALON PERLES 200 MG PO ×3 (08:27→21:36)
[2024-11-10] MEDS: COZAAR 25 MG PO (08:28)
[2024-11-10] MEDS: MAGNESIUM SULFATE 102 GRAMS IV (09:45)
[2024-11-10] MEDS: LASIX 20 MG IV (09:45)
--- NOTE | 2024-11-10 09:45 | W.PN.HOSP.TC ---
Today's Communication/Plan
-
Venous Dopplers
JORDYN stockings
Wean oxygen
Hopefully discharge Thursday
Assessment / Plan
Assessment / Plan
73-year-old female with cough and shortness of breath
Chest h-kop-xtysyxct patchy airspace opacities in both lungs. Chronic peripheral scarring and bronchiolitis in both lungs. Mild cardiomegaly.
EKG-sinus rhythm with PACs. Left anterior fascicular block. LVH. ST depression lateral leads
Echo 11/09/2024-LVEF 60 to 65%. Normal WM. Normal RV size and function. Moderately dilated LA. Moderately to severe dilatation of RA. Mild TR. PA pressure 40-45mm hg
Awake alert
Coughing
Cardiovascular system S1-S2 appreciated
Chest bilateral rales, short rhonchi
Abdomen soft and nontender
Bilateral pedal edema
Bilateral hands with changes from rheumatoid arthritis with braces on
# Acute hypoxic respiratory insufficiency
Secondary to bacterial pneumonia
Sepsis present on admission secondary to above
Chronic peripheral scarring of the/bronchiolitis in both lungs
Blood cultures-neg
Sputum cultures neg
Patient had hives and redness with ceftriaxone-was discontinued. Azithromycin was discontinued-started on Levaquin
Urine Legionella and pneumococcal antigen negative
Wean oxygen as tolerated
Mucolytic therapy and Tessalon Perles for symptom
# Nausea vomiting and diarrhea-prior to admission all resolved- none since admission.
Now constipated
# Lower extremity edema-check venous Doppler
# Constipation-add bowel regimen
# Hypomagnesemia-replace
# Abnormal EKG- Trop Neg. ECHO as above. No chest pain
# Hyponatremia-osmolality studies noted. There is an element of SIADH. FR and lasix 20 mg again IV now
# Hypothyroidism-Continue levothyroxine
# Hypertension-Continue losartan
# Depression-Continue Lexapro
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 Patient has been off of it
# History of PICC line associated right upper extremity DVT 2022
# Rheumatoid Arthritis/Lupus- Previously on Actemra
# Metastatic Breast Cancer s/p Mastectomy, LN resection, Chemo ( Follows with ) and Autologous Bone Marrow Transplant in the at [place]
# History of right lung wedge resection - Metastatic pulmonary nodule from breast cancer
# Degenerative disc disease/arthritis physical limitations/Ambulatory dysfunction
# DVT prophylaxis-subcutaneous Lovenox
# Full code
D/W RN
Spoke to son and updated
Part of this note was created using voice recognition system. Occasional wrong word or��sound alike� substitutions may have inadvertently occurred due to the inherent limitations of voice recognition software. If noted kindly bring it to my
attention for correction.
Anticipated Discharge: 24 - 48 hours
Subjective/Interval History
-
Date of Service: November 10, 2024
Objective Data
-
Labs:
Laboratory Results
11/10/24
06:47
Sodium 130 L
Potassium 3.9
Chloride 104
Carbon Dioxide 24
BUN 14
Creatinine 0.5 L
Glucose 96
Calcium 7.9 L
Vital Signs:
Vital Signs
Temp Pulse Resp BP Pulse Ox
97.9 F 79 16 152/73 93
11/10/24 07:50 11/10/24 07:50 11/10/24 07:50 11/10/24 08:28 11/10/24 07:50
I&O
11/09/24 11/10/24 11/11/24
06:59 06:59 06:59
Intake Total 1889 1080 / 1080
Balance 1889 / 1079
[2024-11-10] MEDS: MIRALAX PO (11:27)
[2024-11-10] MEDS: LEVAQUIN 150 IV (13:32)
[2024-11-10 15:35] VITALS: BP 129/81
--- NOTE | 2024-11-10 16:11 | CM ---
Reviewed the chart notes and spoke with the patient at the bedside. CM spoke with [facility], they will have a bed for the patient when medically stable. CM continues to be available to patient/family and is monitoring medical plan for needs at
discharge.
Plan: Discharge to [facility] when medically stable. No auth required.
[2024-11-10] MEDS: LOVENOX 40 MG SC (18:03)
[2024-11-10 19:57] VITALS: BP 105/49
[2024-11-10] MEDS: MELATONIN 5 MG PO (21:36)
[2024-11-10 23:22] VITALS: BP 131/64
[2024-11-11] VITALS (8 sets, daily range): BP systolic 105–167; BP diastolic 54–97; PULSE 84; O2SAT 94; BMI 28.2
[2024-11-11] MEDS: SYNTHROID 75 MCG PO (05:15)
[2024-11-11] MEDS: DUONEB 3 ML INH ×3 (07:45→19:41)
[2024-11-11 08:04] LABS: Blood Urea Nitrogen 17 mg/dl (7-17); Carbon Dioxide 28 mmol/L (22-30); Chloride 101 mmol/L (98-107); Estimated Creatinine Clearance 83 ml/min; Glucose 88 mg/dl (70-99); Magnesium 1.6 mg/dl (1.6-2.3); Potassium 3.9 mmol/L (3.5-5.1); Sodium 133 mmol/L (135-145); eGFR > 60.00
[2024-11-11] MEDS: COZAAR 25 MG PO (08:12)
[2024-11-11] MEDS: VITAMIN D3 (cholecalciferol) 25 MCG PO (08:12)
[2024-11-11] MEDS: MUCINEX 1200 MG PO ×2 (08:13→19:38)
[2024-11-11] MEDS: LEXAPRO 10 MG PO (08:13)
[2024-11-11] MEDS: MAGNESIUM OXIDE 500 MG PO (08:13)
[2024-11-11] MEDS: TESSALON PERLES 200 MG PO ×3 (08:13→22:20)
[2024-11-11] MEDS: MIRALAX 17 GRAMS PO (08:15)
--- NOTE | 2024-11-11 10:12 | CM ---
Addendum entered by Gisela Patterson RN 11/11/24 15:34:
IMM on chart.
Addendum entered by Gisela Patterson RN 11/11/24 14:13:
Medical necessity and transport forms on chart.
Addendum entered by Gisela Patterson RN 11/11/24 14:02:
CM spoke with Naomy with [facility]. They can accept the patient tomorrow. They are requesting a time around noon. Covid screen to be ordered by attending.
Call report to: [phone]
Fax report to: [phone]
Original Note:
Reviewed the chart notes. Patient requesting a referral be sent to [facility]. Referral sent via [facility]. CM continues to be available to patient/family and is monitoring medical plan for needs at discharge.
Plan: Discharge to SNF/rehab for short term once bed found. No auth required.
--- NOTE | 2024-11-11 10:24 | W.PN.HOSP.TC ---
Today's Communication/Plan
-
wean O2 as able
CXR 2 Views
DC planning to SNF
Assessment / Plan
Assessment / Plan
Assessment:
Acute hypoxic respiratory insufficiency, on 2-3 L
acute multifocal bacterial pneumonia
Sepsis present on admission (leucocytosis, tachypnea)
Chronic peripheral scarring of the/bronchiolitis in both lungs
- cultures negative
- continue Levaquin, day 6
- supportive care with IS/Acapella, mucolytics
- repeat CXR today with ongoing O2 requirements
Nausea vomiting and diarrhea-prior to admission all resolved- none since admission.
- possibly related to constipated - see below
Lower extremity edema
- Doppler negative
Constipation
- continue bowel regimen
Hypomagnesemia
- replace prn
Abnormal EKG
- Trop Neg.
- ECHO: normal EF. Moderately dilated left atrium. Moderately to severely dilated right atrium. Aortic sclerosis without stenosis.
acute Hyponatremia
- osmolality studies noted. There is an element of SIADH.
- continue fluid restriction
- s/p IV Lasix
Hypothyroidism
- continue levothyroxine
Essential HTN
- continue losartan
Depression
- continue Lexapro
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 Patient has been off of it
History of PICC line associated right upper extremity DVT 2022
Rheumatoid Arthritis/Lupus- Previously on Actemra
Metastatic Breast Cancer s/p Mastectomy, LN resection, Chemo ( Follows with ) and Autologous Bone Marrow Transplant in the at [place]
History of right lung wedge resection - Metastatic pulmonary nodule from breast cancer
Degenerative disc disease/arthritis physical limitations/Ambulatory dysfunction
DVT ppx: Lovenox
Code: Full
Anticipated Discharge: 24 - 48 hours
Subjective/Interval History
-
Date of Service: November 11, 2024
mildly SOB, remains on 2-3 L NC with variable sats
denies CP
feels tired
Objective Data
-
Labs:
Laboratory Results
11/11/24
07:21
Sodium 133 L
Potassium 3.9
Chloride 101
Carbon Dioxide 28
BUN 17
Creatinine 0.6
Glucose 88
Calcium 8.0 L
Vital Signs:
Vital Signs
Temp Pulse Resp BP Pulse Ox
98.4 F 68 16 167/83 95
11/11/24 07:10 11/11/24 08:12 11/11/24 07:46 11/11/24 08:12 11/11/24 07:46
I&O
11/10/24 11/11/24 11/12/24
06:59 06:59 06:59
Intake Total 1080 / 1080 1420 / 1420
Balance 1080 / 1080 1420 / 1420
Physical Exam
-
HEENT: Normocephalic and Atraumatic
Respiratory: Rales and Rhonchi
Cardiac: Regular Rhythm and S1/S2
GI: Soft
Genito-urinary: No Costovertebral Tender
Neuro: AO x 3
Psych: Calm
Data Reviewed
-
Total Time Spent with Patient (in minutes): 45
Labs: Labs Reviewed by me
--- NOTE | 2024-11-11 13:31 | PTOTSP ---
Speech Therapy Evaluation:
Pt with chronic risk factors of dysphagia including hx of Rheumatoid Arthritis, breast CA with mets to the lung, and pneumonia, compounded by acute medical illness with current multifocal pneumonia and acute hypoxic respiratory insufficiency (on 2-3
L). Despite this, oropharyngeal swallow appeared grossly functional at bedside. No overt s/sx of aspiration or signs concerning for pharyngeal dysphagia. Pt with increased O2 requirements, however WBC WNL, pt afebrile, and passed 3oz swallow screen.
Recommend:
1. Continue regular solids and thin liquids
2. Medications as tolerated
3. General aspiration and reflux precautions
4. INDUSTRIAL AUTOMATION ENGINEER to follow to monitor tolerance of diet, likely brief
[2024-11-11] MEDS: LEVAQUIN 150 IV (15:34)
[2024-11-11] MEDS: LOVENOX 40 MG SC (17:18)
[2024-11-11] MEDS: MELATONIN 5 MG PO (22:20)
[2024-11-12 03:10] VITALS: BP 159/84
[2024-11-12 06:49] LABS: COVID-19 Antigen Negative (Negative)
[2024-11-12 07:18] VITALS: BP 137/72
[2024-11-12] MEDS: DUONEB 3 ML INH (07:41)
[2024-11-12] MEDS: MUCINEX 1200 MG PO (08:34)
[2024-11-12] MEDS: MAGNESIUM OXIDE 500 MG PO (08:34)
[2024-11-12] MEDS: LEXAPRO 10 MG PO (08:35)
[2024-11-12] MEDS: TESSALON PERLES 200 MG PO (08:35)
[2024-11-12] MEDS: VITAMIN D3 (cholecalciferol) 25 MCG PO (08:35)
[2024-11-12] MEDS: MIRALAX 17 GRAMS PO (08:35)
[2024-11-12] MEDS: COZAAR 25 MG PO (08:35)
[2024-11-12 09:32] LABS: Hematocrit 36.1 % (37.0-47.0); Mean Corp Hgb Conc. 33.2 g/dL (33.0-37.0); Mean Corpuscular Hgb 30.5 pg (27.0-31.0); Mean Corpuscular Volume 91.9 fL (81.0-99.0); Mean Platelet Volume 8.5 fL (7.4-10.4); Platelet Count 244 10^3/uL (130-400); Red Blood Cell Count 3.93 10^6/uL (4.20-5.40); Red Cell Dist. Width 13.9 % (11.5-14.5); White Blood Cell Count 8.9 10^3/uL (4.8-10.8)
--- NOTE | 2024-11-12 09:44 | CM ---
CM reviewed chart and noted dc order
[facility] confirmed bed availability today
Transport scheduled by automotive parts clerk for 1400 pickup
Call to son with update
Discharge Disposition- [facility] via BLS
Call report to: [phone]
Fax report to: [phone]
[2024-11-12 09:49] LABS: Blood Urea Nitrogen 14 mg/dl (7-17); Calcium 8.3 mg/dl (8.4-10.2); Carbon Dioxide 28 mmol/L (22-30); Chloride 100 mmol/L (98-107); Estimated Creatinine Clearance 83 ml/min; Glucose 87 mg/dl (70-99); Sodium 133 mmol/L (135-145); eGFR > 60.00
[2024-11-12 11:44] VITALS: BP 102/62
--- NOTE | 2024-11-12 12:00 | W.PN.HOSP.TC ---
Today's Communication/Plan
-
dc to SNF
Assessment / Plan
Assessment / Plan
Assessment:
Acute hypoxic respiratory insufficiency, on 2-3 L
acute multifocal bacterial pneumonia
Sepsis present on admission (leucocytosis, tachypnea)
Chronic peripheral scarring of the/bronchiolitis in both lungs
- cultures negative
- continue Levaquin, day 11/24
- supportive care with IS/Acapella, mucolytics
- repeat CXR: stable
Nausea vomiting and diarrhea-prior to admission all resolved- none since admission.
- possibly related to constipated - see below
Lower extremity edema
- Doppler negative
Constipation
- continue bowel regimen
Hypomagnesemia
- replace prn
Abnormal EKG
- Trop Neg.
- ECHO: normal EF. Moderately dilated left atrium. Moderately to severely dilated right atrium. Aortic sclerosis without stenosis.
acute Hyponatremia
- osmolality studies noted. There is an element of SIADH.
- continue fluid restriction
- s/p IV Lasix
Hypothyroidism
- continue levothyroxine
Essential HTN
- continue losartan
Depression
- continue Lexapro
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 Patient has been off of it
History of PICC line associated right upper extremity DVT 2022
Rheumatoid Arthritis/Lupus- Previously on Actemra
Metastatic Breast Cancer s/p Mastectomy, LN resection, Chemo ( Follows with ) and Autologous Bone Marrow Transplant in the at [place]
History of right lung wedge resection - Metastatic pulmonary nodule from breast cancer
Degenerative disc disease/arthritis physical limitations/Ambulatory dysfunction
DVT ppx: Lovenox
Code: Full
More than 30 minutes spent in discharge including
Final examination of the patient
Summarizing hospital stay
Instructions for continuing care to all relevant caregivers
Preparation of discharge records, prescriptions, and referral forms
Total time spent (in minutes): 41
Anticipated Discharge: Today
Subjective/Interval History
-
Date of Service: November 12, 2024
resting comfortably, on 2-3 Liters
Objective Data
-
Labs:
Laboratory Results
11/12/24
09:20
WBC 8.9
Hgb 12.0
Hct 36.1 L
Plt Count 244
Sodium 133 L
Potassium 4.0
Chloride 100
Carbon Dioxide 28
BUN 14
Creatinine 0.5 L
Glucose 87
Calcium 8.3 L
Vital Signs:
Vital Signs
Temp Pulse Resp BP Pulse Ox
98.1 F 78 16 102/62 94
11/12/24 11:44 11/12/24 11:44 11/12/24 11:44 11/12/24 11:44 11/12/24 11:44
I&O
11/11/24 11/12/24 11/13/24
06:59 06:59 06:59
Intake Total 1420 / 1420 1050 / 1050
Balance 1420 / 1420 1050 / 1050
Physical Exam
-
General: No Apparent Distress
HEENT: Normocephalic and Atraumatic
Respiratory: Negative Wheezes
Cardiac: Regular Rhythm and S1/S2
GI: Soft
Musculoskeletal: No Edema
Neuro: AO x 3
Psych: Calm
Data Reviewed
-
Total Time Spent with Patient (in minutes): 42
Labs: Labs Reviewed by me
--- NOTE | 2024-11-12 12:05 | W.DS.TRANS ---
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
-
Discharge Instructions:
Discharge Diagnosis/Procedures hypoxia related to multifocal pneumonia
Diet Regular,Restrict fluids to 48 oz
Activity As tolerated
Others Tests repeat CXR in 4 weeks to follow progress of
pneumonia recovery
Other Services PT,OT
Instructions:
Stand-Alone Forms:
Changes to Home Medications: No
Discharge Medications:
DC Medications w/original date entered in [place] [employer]
levothyroxine 75 mcg tablet 75 mcg PO SUMOTUWETHFR Thyroid 10/26/20
alendronate 70 mg tablet (Fosamax) 70 mg PO SA osteoporosis 09/18/22
cholecalciferol (vitamin D3) 25 mcg (1,000 unit) tablet (Vitamin D3) 25 mcg PO DAILY 11/05/24
escitalopram oxalate 10 mg tablet (Lexapro) 10 mg PO DAILY 11/05/24
losartan 25 mg tablet 25 mg PO DAILY 11/05/24
benzonatate 100 mg capsule 200 mg (2 x 100 mg) PO TID PRN Cough #20 caps 11/12/24
guaifenesin 600 mg tablet, extended release 12 hr 1,200 mg (2 x 600 mg) PO Q12 #20 tabs 11/12/24
ipratropium 0.5 mg-albuterol 3 mg (2.5 mg base)/3 mL nebulization soln 3 ml inhalation R Q4HPRN PRN sob or wheezing #90 mL 11/12/24
levofloxacin 750 mg tablet 750 mg PO DAILY #3 tabs 11/12/24
magnesium oxide 500 mg PO DAILY #30 tabs 11/12/24
polyethylene glycol 3350 17 gram oral powder packet 17 g PO DAILY #30 ea 11/12/24
Home Medication Changes
Pending Results: No
Total time spent discharging patient (in min): 41
[2024-11-12] MEDS: LEVAQUIN 750 MG PO (12:23)
== END 2024-11-12 12:59 | DRG 871 ==
LOC: 2 NORTH 20:02
PROVIDERS: Hospitalist; Internal Medicine; ADMITTING PHYSICIAN Internal Medicine; ATTENDING PHYSICIAN Internal Medicine; EMERGENCY PHYSICIAN Student in an Organized Health Care Education/Training Program; FAMILY PHYSICIAN Family Medicine
DX: A41.9 Sepsis, unspecified organism (principal); J15.9 Unspecified bacterial pneumonia; D68.4 Acquired coagulation factor deficiency; E27.40 Unspecified adrenocortical insufficiency; E22.2 Syndrome of inappropriate secretion of antidiuretic hormone; Z94.81 Bone marrow transplant status; I11.9 Hypertensive heart disease without heart failure; M06.9 Rheumatoid arthritis, unspecified; J02.0 Streptococcal pharyngitis; E03.9 Hypothyroidism, unspecified; M17.12 Unilateral primary osteoarthritis, left knee; R09.02 Hypoxemia; I44.4 Left anterior fascicular block; K59.00 Constipation, unspecified; R60.0 Localized edema; I70.0 Atherosclerosis of aorta; R06.89 Other abnormalities of breathing; F32.A Depression, unspecified; E83.42 Hypomagnesemia; Z60.2 Problems related to living alone; Z96.653 Presence of artificial knee joint, bilateral; Z96.649 Presence of unspecified artificial hip joint; Z85.3 Personal history of malignant neoplasm of breast; Z85.118 Personal history of other malignant neoplasm of bronchus and lung; Z87.01 Personal history of pneumonia (recurrent); Z88.0 Allergy status to penicillin; Z88.1 Allergy status to other antibiotic agents; Z91.041 Radiographic dye allergy status; Z79.890 Hormone replacement therapy; Z90.2 Acquired absence of lung [part of]; Z90.10 Acquired absence of unspecified breast and nipple; Z11.52 Encounter for screening for COVID-19; Z86.718 Personal history of other venous thrombosis and embolism
CPT/HCPCS: 71046; 80048; 80053; 82306; 82533; 83605; 83735; 83930; 83935; 84300; 84484; 85025; 85027; 85610; 85730; 87040; 87070; 87205; 87449; 87502; 87811; 87880; 87899; 92610; 93005; 93306; 93970; 94640; 96361; 96374; 96375; 97116; 97163; 97530; 99285

== ENCOUNTER → 2024-12-14 09:56 | Outpatient (REF) | payer MEDICARE, OTHER, SELFPAY | LOC: RAD 09:56 | PROVIDERS: ATTENDING PHYSICIAN Family Medicine | DX: J18.9 Pneumonia, unspecified organism (principal) | CPT/HCPCS: 71046 ==